=== PATIENT | female | born 1990 | race Caucasian/White ===

== ENCOUNTER 2021-12-18 23:21 | Outpatient (CLI) | payer BC, SELFPAY ==
[2021-12-18 23:44] VITALS: PULSE 98; O2SAT 99
[2021-12-18 23:46] VITALS: BP 136/90; PULSE 78; RESP 16; TEMP 36.9
[2021-12-19 00:03] VITALS: BP 132/88; PULSE 90
[2021-12-19 00:11] VITALS: BP 121/84; PULSE 87
--- NOTE | 2021-12-19 02:28 | PC.OBNST ---
NST Note NST Note Start: 12/18/21 23:33 Freq: ONCE Status: Active Protocol: Document 12/19/21 02:26 EGM (Rec: 12/19/21 02:28 EGM [id number]) NST Note 5 Para (# of births) 2 EDC 12/25/21 Patient Presented with Complaint(s) of Contractions/cramping Reactive Yes Appropriate for Gestational Age Yes GALEN Sanders RN Date 12/19/21 Reactive Yes Appropriate for Gestational Age Yes GALEN Valdez RN-C Date 12/19/21 OB NST charge Yes Provider Evaluation of EFM Strip: Reactive: [] Appropriate for Gestational Age: [] Comments:
--- OUTSIDE RECORDS SUMMARY | 2022-01-15 11:01 | XMS_ITS | Encounter Summary ---
:1990 Author Organization [facility] Address [address] [place] [id number] Care Team Providers Name Role Phone No Ref-Primary, Physician Primary Care Provider [phone] Sarah Weiner CLINICAL MANAGER HOME CARE TECHNICAL SOURCING RECRUITER Unavailable [phone] Encounter Details Date Type Department Care Team Description 01/19/2019 Travel Social History Tobacco Use Types Packs/Day Years Used Date Never Smoker Smokeless Tobacco: Never Used Alcohol Use Standard Drinks/Week Comments No 0 (1 standard drink = 0.6 oz pure alcoho l) Sex Assigned at Date Recorded Not on file documented as of this encounter Plan of Treatment Not on filedocumented as of this encounter Visit Diagnoses Not on filedocumented in this encounter Care Teams Recruitment Director Relationship Specialty Start Date End Date No Ref-Primary, Physician PCP - General 09/02/17 03/07/19 Sarah Weiner, YVES TECHNICAL SOURCING RECRUITER Assigned PCP 09/06/18 01/22/20 [id number] [place] [address] documented as of this encounter
--- OUTSIDE RECORDS SUMMARY | 2022-01-15 11:01 | XMS_ITS | Encounter Summary ---
:1990 Author Organization [facility] Address [address] [place] [address]. [place] [address] Care Team Providers Name Role Phone No Ref-Primary, Physician Primary Care Provider [phone] Jeff Mcgee PA-C Unavailable [phone] Reason for Referral Vision Services - Closed Specialty Diagnoses / Procedures Referred By Contact Refer red To Contact Diagnoses Vision changes Sarah Weiner M [facility] YVES [place] [address] [facility] [address] [place] [address] [place] [phone] Phone: Fax: Referral ID Status Reason Start Date Expiration Date Visits Requ ested Visits Authorized [id number] Closed 09/03/2018 09/03/2019 1 1 Reason for Visit Reason Comments Nutrition Counseling Eye Problem little difficult see at [facility] t when driving Encounter Details Date Type Department Care Team Description 09/03/[address] [facility] Sarah Weiner Class 1 obesity due to excess calories without serious comorbidity with body mass index (BMI) of 34.0 to 34.9 in adult (Primary Dx); Clinic Anu Olson APRN CNP Vision changes [place] [address] [facility], [address] [place] [address] [place], [place] [phone] (Wo rk) [id number] [phone] Social History Tobacco Use Types Packs/Day Years Used Date Never Smoker Smokeless Tobacco: Never Used Alcohol Use Standard Drinks/Week Comments No 0 (1 standard drink = 0.6 oz pure alcoho l) Sex Assigned at Date Recorded Not on file documented as of this encounter Last Filed Vital Signs Vital Sign Reading Time Taken Comments Blood Pressure 118/82 09/03/2018 9:50 AM CDT Pulse 88 09/03/2018 9:50 AM CDT Temperature 36.4 ??C (97.6 ??F) 09/03/2018 9:50 AM CDT Respiratory Rate 16 09/03/2018 9:50 AM CDT Oxygen Saturation 97% 09/03/2018 9:50 AM CDT Inhaled Oxygen Concentration - - Weight 93.4 kg (206 lb) 09/03/2018 9:50 AM CDT Height 165.7 cm (5' 5.25) 09/03/2018 9:50 AM CDT Body Mass Index 34.02 09/03/2018 9:50 AM CDT documented in this encounter Progress Notes Sarah Weiner, YVES DIRECTOR WOMEN - 09/03/2018 9:40 AM CDT SUBJECTIVE: Aleyda Palmer is a 27 year old female who presents to clinic today for the following health issues: Eye(s) Problem Onset: x 2 months ago ?? Description: Location: bilateral Pain: no Redness: no ?? Accompanying Signs & Symptoms: Discharge/mattering: no Swelling: no Visual changes: YES- At night when driving Fever: no Nasal Congestion: no Bothered by bright lights: YES ?? History: Trauma: no Foreign body exposure: no ?? Precipitating factors: Wearing contacts: no ?? Alleviating factors: Improved by: no Therapies Tried and outcome: no Would like to have an eye exam before she drives to [place] for a road trip in October. Driving at night bothers her eyes. Was told she needed a referral. Would like to talk about nutrition and a medication for diet. She works out 3-5 days a week. She plays basketball one day a week and is starting to do tennis. Shealso lifts weights and runs 1 mile when at the gym. She started to improve her diet around Bharath. She stopped drinking soda; used to drink 3 cans of coke a day. She is working on cutting out sugars. Her snacks have switched to a protien or something healthy; no crackers/goldfish. She has cut down on the frequency of eating out. Despite diet changes and exercise she is having a hard time loosing weight. She would like to try a medication, specifically phentermine. Wt Readings from Last 4 Encounters: 09/03/18 93.4 kg (206 lb) 09/22/17 91.6 kg (202 lb) 09/02/17 90.7 kg (200 lb) Problem list and histories reviewed & adjusted, as indicated. Additional history: as documented No current outpatient medications on file. No Known Allergies Reviewed and updated as needed this visit by clinical staff Tobacco Meds Med Hx Surg Hx Fam Hx Soc Hx Reviewed and updated as needed this visit by Provider ROS: Constitutional, HEENT, cardiovascular, pulmonary, gi and gu systems are negative, except as otherwise noted. OBJECTIVE: BP 118/82 (BP Location: Right arm, Patient Position: Sitting, Cuff Size: Adult Regular) Pulse 88 Temp 97.6 ??F (36.4 ??C) (Oral) Resp 16 Ht 1.657 m (5' 5.25) Wt 93.4 kg (206 lb) SpO2 97% BMI 34.02 kg/m?? Body mass index is 34.02 kg/m??. GENERAL: healthy, alert and no distress PSYCH: mentation appears normal, affect normal/bright Diagnostic Test Results: none ASSESSMENT/PLAN: 1. Class 1 obesity due to excess calories without serious comorbidity with body mass index (BMI) of 34.0 to 34.9 in adult Discussed weight loss; aim for 150 minutes of dedicated physical activity weekly. myfitnesspal to help track diet, intermittent fasting (fast for 12 hours daily-- 7pm-7am), increase water intake, increase fruits and vegetables. Will start phentermine; risks, benefits and side effects reviewed as well as short term nature of medication. - phentermine (ADIPEX-P) 37.5 MG capsule; Take 1 capsule (37.5 mg) by mouth every morning Dispense: 30 capsule; Refill: 0 2. Vision changes - OPTOMETRY REFERRAL F/u 1 mos Sarah Weiner APRN CNP [facility] documented in this encounter Plan of Treatment Scheduled Referrals Name Type Priority Associated Diagnoses Order S chedule OPTOMETRY REFERRAL Referral Routine Vision changes Ordered : 09/03/2018 documented as of this encounter Visit Diagnoses Diagnosis Class 1 obesity due to excess calories w ithout serious comorbidity with body mass index (BMI) of 34.0 to 34.9 in adult - P rimary Vision changes Unspecified visual disturbance documented in this encounter Care Teams Dean Of Women Relationship Specialty Start Date End Date No Ref-Primary, Physician PCP - General 09/02/17 03/07/19 Jeff Mcgee PA-C Assigned PCP 09/04/17 09/05/18 [id number] [facility] [place] [address] documented as of this encounter
--- OUTSIDE RECORDS SUMMARY | 2022-01-15 11:01 | XMS_ITS | Encounter Summary ---
:1990 Author Organization [place] Address [address] [facility] [place] [address] Care Team Providers Name Role Phone No Ref-Primary, Physician Primary Care Provider [phone] Sarah Weiner KAIAWHINA MEASURER MACHINE Unavailable [phone] Reason for Visit Reason Comments Recheck Medication Encounter Details Date Type Department Care Team Description 12/11/[address] [facility] Sarah Weiner Class 1 obesity due [facility] YVES Olson MEASURER MACHINE to excess calories [place] [address] [facility] [address] [place] [address] comorbidity with body [place], [place] [phone] (Wo rk) [place] ([place] [phone] 34.0 to 34.9 in adult [phone] Social History Tobacco Use Types Packs/Day Years Used Date Never Smoker Smokeless Tobacco: Never Used Alcohol Use Standard Drinks/Week Comments No 0 (1 standard drink = 0.6 oz pure alcoho l) Sex Assigned at Date Recorded Not on file documented as of this encounter Last Filed Vital Signs Vital Sign Reading Time Taken Comments Blood Pressure 115/80 12/11/2018 2:48 PM CDT Pulse 90 12/11/2018 3:07 PM CDT Temperature 36.6 ??C (97.8 ??F) 12/11/2018 2:48 PM CDT Respiratory Rate 16 12/11/2018 2:48 PM CDT Oxygen Saturation - - Inhaled Oxygen Concentration - - Weight 76.1 kg (167 lb 11.2 oz) 12/11/2018 2:48 PM CDT Height 165.7 cm (5' 5.25) 12/11/2018 2:48 PM CDT Body Mass Index 27.69 12/11/2018 2:48 PM CDT documented in this encounter Progress Notes Sarah Weiner, KAIAWHINA MEASURER MACHINE - 12/11/2018 2:40 PM CDT Subjective Aleyda Palmer is a 28 year old female who presents to clinic today for the following health issues: HPI Medication Followup of phentermine ?? Taking Medication as prescribed: yes ?? Side Effects: None ?? Medication Helping Symptoms: yes Wt Readings from Last 4 Encounters: 12/11/18 76.1 kg (167 lb 11.2 oz) 10/06/18 86.4 kg (190 lb 6.4 oz) 09/03/18 93.4 kg (206 lb) 09/22/17 91.6 kg (202 lb) Started on phentermine in the end of August 2018. She has continued on this the last 3 months and hasdone quite well. She has been working out 4-5 days a week. Over the last few months she has been able to stay focused and committed to healthy diet changes. She does find now that it is summer and she goes boating with friends she has been drinking more alcohol. Current Outpatient Medications Medication Sig Dispense Refill ??? phentermine (ADIPEX-P) 37.5 MG capsule Take 1 capsule (37.5 mg) by mouth every morning 30 capsule 2 No Known Allergies Reviewed and updated as needed this visit by Provider Review of Systems ROS COMP: Constitutional, HEENT, cardiovascular, pulmonary, gi and gu systems are negative, except as otherwise noted. Objective BP 115/80 (BP Location: Right arm, Patient Position: Sitting, Cuff Size: Adult Regular) Pulse 90 Temp 97.8 ??F (36.6 ??C) (Oral) Resp 16 Ht 1.657 m (5' 5.25) Wt 76.1 kg (167 lb 11.2 oz) BMI 27.69 kg/m?? Body mass index is 27.69 kg/m??. Physical Exam GENERAL: healthy, alert and no distress RESP: lungs clear to auscultation - no rales, rhonchi or wheezes CV: regular rate and rhythm, normal S1 S2, no S3 or S4, no murmur, click or rub PSYCH: mentation appears normal, affect normal/bright Diagnostic Test Results: none Assessment & Plan 1. Class 1 obesity due to excess calories without serious comorbidity with body mass index (BMI) of 34.0 to 34.9 in adult She has done very well with phentermine. She would like to continue; will have her take for 3 additional months and then stop. Congratulated her on lifestyle changes. - phentermine (ADIPEX-P) 37.5 MG capsule; Take 1 capsule (37.5 mg) by mouth every morning Dispense: 30 capsule; Refill: 2 Return in about 3 months (around 03/13/2019) for weight loss , Physical Exam. Sarah Weiner APRN CNP [facility] documented in this encounter Plan of Treatment Not on filedocumented as of this encounter Visit Diagnoses Diagnosis Class 1 obesity due to excess calories w ithout serious comorbidity with body mass index (BMI) of 34.0 to 34.9 in adult documented in this encounter Care Teams Comptroller Relationship Specialty Start Date End Date No Ref-Primary, Physician PCP - General 09/02/17 03/07/19 Sarah Weiner APRN CNP Assigned PCP 09/06/18 01/22/20 [address] [address] [address] documented as of this encounter
--- OUTSIDE RECORDS SUMMARY | 2022-01-15 11:01 | XMS_ITS | Encounter Summary ---
:1990 Author Organization [place] Address [facility] [place] [address] Care Team Providers Name Role Phone No Ref-Primary, Physician Primary Care Provider [phone] Reason for Visit Reason Comments Abdominal Pain Encounter Details Date Type Department Care Team Description [facility]/02[facility] Emergency Dep t epigastric [address] [facility] [id number] [address] [facility] [phone] [place], [place] [address] (Wo rk) Social History Tobacco Use Types Packs/Day Years Used Date Never Smoker Smokeless Tobacco: Never Used Alcohol Use Standard Drinks/Week Comments No 0 (1 standard drink = 0.6 oz pure alcoho l) Sex Assigned at Date Recorded Not on file documented as of this encounter Last Filed Vital Signs Vital Sign Reading Time Taken Comments Blood Pressure 127/93 09/02/2017 8:00 AM CDT Pulse 73 09/02/2017 6:04 AM CDT Temperature 36.6 ??C (97.8 ??F) 09/02/2017 6:04 AM CDT Respiratory Rate 16 09/02/2017 8:31 AM CDT Oxygen Saturation 98% 09/02/2017 8:00 AM CDT Inhaled Oxygen Concentration - - Weight 90.7 kg (200 lb) 09/02/2017 6:04 AM CDT Height - - Body Mass Index - - documented in this encounter Discharge Instructions Discharge Vandana Buchanan MD - 09/02/2017 6:54 AM CDT Images from the original note were not included. Epigastric Pain (Uncertain Cause) ?? Epigastric pain can be a sign of disease in the upper abdomen. Common causes include: ?? Acid reflux (stomach acid flowing up into the esophagus) ?? Gastritis (irritation of the stomach lining) ?? Peptic Ulcer Disease ?? Inflammation of the pancreas ?? Gallstone ?? Infection in the gallbladder Pain may be dull or burning. It may spread upward to the chest or to the back. There may be other symptoms such as belching, bloating, cramps or hunger pains. There may be weight loss or poor appetite,nausea or vomiting. Since the diagnosis of your pain is not certain yet, further tests may sometimes??be needed. Sometimes the doctor will treat you for the most likely condition to see if there is improvement before doing further tests. Home care Medicines ?? Antacids help neutralize the normal acids in your stomach. Examples are Maalox, Mylanta, Rolaids,and Tums. If you don???t like the liquid, you can also try a chewable one. You may find one works better than another for you. Overuse can cause diarrhea or constipation. ?? Acid blockers (H2 blockers) decrease acid production. Examples are cimetidine (Tagamet), famotidine (Pepcid) and ranitidine (Zantac). ?? Acid inhibitors (PPIs) decrease acid production in a different way than the blockers. You may find they work better, but can take a little longer to take effect.?? Examples are omeprazole (Prilosec), lansoprazole (Prevacid), pantoprazole (Protonix), rabeprazole (Aciphex), and esomeprazole (Nexium). ?? Take an antacid 30-60??minutes after eating and at bedtime, but not at the same time as an acid sami. ?? Try not to take NSAIDs. Aspirin may also cause problems, but if taking it for your heart or othermedical reasons, talk to your doctor before stopping it; you do not want to cause a worse problem, like a heart attack or stroke. Diet ?? If certain foods seem to cause your spasm, try to avoid them.? Eat slowly and chew food well before swallowing. Symptoms of gastritis can be worsened by certainfoods. Limit or avoid fatty, fried, and spicy foods, as well as coffee, chocolate, mint, and foods with high acid content such as tomatoes and citrus fruit and juices (orange, grapefruit, lemon). ?? Avoid alcohol, caffeine, and tobacco, which can delay healing??and worsen your problem. ?? Try eating smaller meals with snacks in between Follow-up care Follow up with your healthcare provider or as advised. When to seek medical advice Call your healthcare provider right away if any of the following occur: ?? Stomach pain worsens or moves to the right lower part of the abdomen ?? Chest pain appears, or if it worsens or spreads to the chest, back, neck, shoulder, or arm ?? Frequent vomiting (can???t keep down liquids) ?? Blood in the stool or vomit (red or black color) ?? Feeling weak or dizzy, fainting, or having trouble breathing ?? Fever of 100.4??F (38??C) or higher, or as directed by your healthcare provider ?? Abdominal swelling Date Last Reviewed: 03/03/2015 ?? [id number] [employer]. [address] [place] [address]. All rights reserved. This information is not intended as a substitute for professional medical care. Always follow your healthcare professional's instructions. documented in this encounter Medications at Time of Discharge Medication Sig Dispensed Refills Start Date End Date TRINESSA, 28, 0.18/0.215/0.25 MG-35 MCG 0 10/01/2016 09/03/2018 per tablet documented as of this encounter ED Notes Shazia Pedroza - 09/02/2017 8:32 AM CDT Removed Pt. IV placed in Lt. Arm. Pt. Tolerated well Shazia Pedroza - 09/02/2017 8:19 AM CDT Water and gram crackers given to Pt. Corazon Vasquez RN - 09/02/2017 6:06 AM CDT 26-year-old female presents to the ER with complaints of nausea, craving for fruit, and abd cramping. Pt thought she may be so she took a test at home yesterday that was negative. Ptlast had her menstrual cycle 2 weeks ago. Vandana Paiz MD - 09/02/2017 6:01 AM CDT History Chief Complaint: Abdominal Pain HPI Aleyda Palmer is a 26 year old female who presents with abdominal pain. She states that she started having nausea and 1 episode of vomiting 4 days ago. She then started having severe lower abdominal cramping that radiates her hips, which started the next day. Her appetite has decreased and she feelslike the only thing that feels okay to eat is fruit. She is now having upper abdominal pain around her epigastrium that is moderate in intensity. She is unsure if food makes the pain worse. She denies fevers, dysuria, increased urinary frequency, shortness and chest pain. Endorses a couple loose stools, but now is stooling normal. She denies any history of abdominal surgeries. She took a urine pregnan cy test yesterday, which was negative. She denies vaginal discharge. Allergies: NKDA Medications: No current outpatient prescriptions on file. Past Medical History: History reviewed. No pertinent past medical history. There are no active problems to display for this patient. Past Surgical History: History reviewed. No pertinent surgical history. Family History: family history is not on file. Social History: reports that she has never smoked. She has never used smokeless tobacco. She reports that she does not drink alcohol or use illicit drugs. PCP: No primary care provider on file. Review of Systems Constitutional: Negative for chills and fever. Respiratory: Negative for cough and shortness of breath. Gastrointestinal: Positive for abdominal pain, diarrhea and nausea. Negative for abdominal distention and constipation. Endocrine: Positive for polyuria. Genitourinary: Negative for dysuria. Neurological: Positive for light-headedness. Negative for weakness. All other systems reviewed and are negative. Physical Exam Patient Vitals for the past 24 hrs: BP Temp Temp src Pulse Resp SpO2 Weight 09/02/17 0702 115/74 - - - - 100 % - 09/02/17 0700 - - - - - 99 % - 09/02/17 0604 (!) 151/106 97.8 ??F (36.6 ??C) Temporal 73 18 96 % 90.7 kg (200 lb) Physical Exam Constitutional: Alert, attentive, GCS 15, well appearing young woman in no acute distress, appears comfortable HENT: Nose: Nose normal. Mouth/Throat: Oropharynx is clear, mucous membranes are moist Eyes: Normal conjunctiva. Pupils are equal, round, and reactive to light. CV: regular rate and rhythm; no murmurs, rubs or gallups Chest: Effort normal and breath sounds normal. GI: There is tenderness to deep palpation in RUQ and epigastrium, no rebound or guarding. Negative [place] sign. No distension. Normal bowel sounds MSK: Normal range of motion, no peripheral edema. Neurological: Alert, attentive, oriented x4, strength grossly normal Skin: Skin is warm and dry. Emergency Department Course Imaging: US Abdomen Limited Preliminary Result IMPRESSION: 1. Fatty infiltration of the liver. 2. Gallbladder has a normal appearance by ultrasound. No gallstones. Negative sonographic Gallegos's sign. 3. Small size of the right kidney. This could be developmental in nature, versus prior renal insult. Laboratory: Labs Ordered and Resulted from Time of ED Arrival Up to the Time of Departure from the ED ROUTINE UA WITH MICROSCOPIC - Abnormal; Notable for the following: Result Value Mucous Urine Present (*) All other components within normal limits COMPREHENSIVE METABOLIC PANEL - Abnormal; Notable for the following: ALT 65 (*) All other components within normal limits HCG QUALITATIVE URINE LIPASE CBC WITH PLATELETS DIFFERENTIAL Interventions: Medications lidocaine (viscous) (XYLOCAINE) 2 % 15 mL, alum & mag hydroxide-simethicone (MYLANTA ES/MAALOX ES) 15 mL GI Cocktail (30 mLs Oral Given 09/02/17 0711) ketorolac (TORADOL) injection 15 mg (15 mg Intravenous Given 09/02/17 0814) Emergency Department Course: Past medical records, nursing notes, and vitals reviewed. I performed an exam of the patient and obtained history, as documented above. I rechecked the patient. No improvement after GI cocktail. Toradol given. 0820 I rechecked the patient. Findings and plan explained to the Patient. All questions answered. Impression & Plan Medical Decision Makin26 year old female presents with intermittent abdominal pain and cramping. On exam, pain is located in her RUQ and epigastrium. Differential diagnosis includes gastritis, GERD, cholecystitis, cholelithiasis, pancreatitis, acute coronary syndrome, pneumonia. Urine is negative and UA does not show infection or hematuria. Labs reassuring. US shows fatty liver infiltration but no gallstones or secondary signs of cholecystitis. Symptoms improved with the above indications in the emergency department. Repeat abdominal exam is benign. Her symptoms appear more consistent with cramping after viralgastroenteritis, and less consistent with gastritis or PUD as there is no worsening with food intakeand there is intermittent lower abdominal cramping as well. It is not localizing to RLQ and doubt appendicitis given duration of symptoms without fevers or leukocytosis. She will try trial of ibuprofenif pain returns. Patient instructed to follow up with primary care physician in 2-3 days if not improving and return precautions discussed with patient. Return precautions discussed. Diagnosis: ICD-10-CM 1. Abdominal pain, epigastric R10.13 Lipase Comprehensive metabolic panel CBC with platelets differential Discharge Medications: New Prescriptions No medications on file 09/02/2017 Vandana Paiz MD Lum, Marija Margaret, MD 09/02/17 1520 documented in this encounter Plan of Treatment Not on filedocumented as of this encounter Procedures Procedure Name Priority Date/Time Associated Comments Diagnosis US ABDOMEN LIMITED STAT 09/02/2017 7:00 AM Res ults for this CDT procedure are i n the results section. CBC WITH PLATELETS & Routine 09/02/2017 6:30 AM Abdominal pain , Results for this DIFFERENTIAL CDT epigastric procedure are i n the results section. LIPASE STAT 09/02/2017 6:30 AM Abdominal pain, Result s for this CDT epigastric procedure are i n the results section. COMPREHENSIVE Routine 09/02/2017 6:30 AM Abdominal pain, Resul ts for this METABOLIC PANEL CDT epigastric procedure ar e in the results section. HCG QUALITATIVE URINE STAT 09/02/2017 6:16 AM Results for this CDT procedure are i n the results section. ROUTINE UA WITH STAT 09/02/2017 6:16 AM Result s for this MICROSCOPIC CDT procedure are i n the results section. documented in this encounter Results US Abdomen Limited (09/02/2017 7:00 AM CDT) Anatomical Region Laterality Modality Abdomen/Pelvis Ultrasound Specimen (Source) Anatomical Location Collection Method / Collectio n Time Received Time / Laterality Volume Impressions 09/02/2017 3:54 PM CDT IMPRESSION: ?? 1. Fatty infiltration of the liver. 2. Gallbladder has a normal appearance b y ultrasound. No gallstones. Negative sonographic Gallegos's sign. 3. Small size of the right kidney. This could be developmental in nature, versus prior renal insult. VIRGINIA GARCIA MD Narrative 09/02/2017 3:54 PM CDT ULTRASOUND ABDOMEN LIMITED September 02, 2017 7:00 AM HISTORY: Right upper quadrant pain. COMPARISON: None. FINDINGS: ?? Gallbladder: Normal with no cholelithias is, wall thickening or focal tenderness. ?? Bile ducts: CHD is normal diameter. No i ntrahepatic biliary dilatation. Liver: Fatty liver. Pancreas: Partially obscured but grossly unremarkable. Right kidney: Length is 7.3 cm. Cortical thickness is 0.9 cm. No hydronephrosis. Aorta and IVC: Not specifically assessed . ?? Procedure Note Virginia Garcia MD - 09/02/2017Forma tting of this note might be different from the original. ULTRASOUND ABDOMEN LIMITED September 02 7:00 AM HISTORY: Right upper quadrant pain. COMPARISON: None. FINDINGS: Gallbladder: Normal with no cholelithias is, wall thickening or focal tenderness. Bile ducts: CHD is normal diameter. No i ntrahepatic biliary dilatation. Liver: Fatty liver. Pancreas: Partially obscured but grossly unremarkable. Right kidney: Length is 7.3 cm. Cortical thickness is 0.9 cm. No hydronephrosis. Aorta and IVC: Not specifically assessed . IMPRESSION: 1. Fatty infiltration of the liver. 2. Gallbladder has a normal appearance b y ultrasound. No gallstones. Negative sonographic Gallegos's sign. 3. Small size of the right kidney. This could be developmental in nature, versus prior renal insult. VIRGINIA GARCIA MD Vandana Paiz MD IMG US ORDERABLES CBC with platelets differential (09/02/2017 6:30 AM [facility]) [facility] gist Method Time Signature WBC 8.4 4.0 - 09/02/2017 [facility] 11.0 6:56 AM [facility] 10e9/L [facility] RBC Count 4.83 3.8 - 5.2 09/02/2017 [facility] 10e12/L 6:56 AM [facility] Hemoglobin 13.4 11.7 - 09/02/2017 [facility] 15.7 g/dL 6:56 AM [facility] Hematocrit 40.6 35.0 - 09/02/2017 [facility] 47.0 % 6:56 AM [facility] MCV 84 78 - 100 09/02/2017 [facility] fl 6:56 AM [facility] MCH 27.7 26.5 - 09/02/2017 [facility] 33.0 pg 6:56 AM [facility] MCHC 33.0 31.5 - 09/02/2017 [facility] 36.5 g/dL 6:56 AM [facility] RDW 12.5 10.0 - 09/02/2017 [facility] 15.0 % 6:56 AM [facility] Platelet Count 234 150 - 450 09/02/2017 [facility] 10e9/L 6:56 AM [facility] Diff Method Automated 09/02/2017 [facility] Method 6:56 AM [facility] % Neutrophils 63.5 % 09/02/2017 [facility] 6:56 AM [facility] % Lymphocytes 24.8 % 09/02/2017 [facility] 6:56 AM [facility] % Monocytes 7.5 % 09/02/2017 [facility] 6:56 AM [facility] % Eosinophils 3.6 % 09/02/2017 [facility] 6:56 AM [facility] % Basophils 0.2 % 09/02/2017 [facility] 6:56 AM [facility] % Immature 0.4 % 09/02/2017 [facility] Granulocytes 6:56 AM [facility] Nucleated RBCs 0 0 /100 09/02/2017 [facility] 6:56 AM [facility] Absolute 5.3 1.6 - 8.3 09/02/2017 [facility] Neutrophil 10e9/L 6:56 AM [facility] Absolute 2.1 0.8 - 5.3 09/02/2017 [place] Lymphocytes 10e9/L 6:56 AM [facility] Absolute 0.6 0.0 - 1.3 09/02/2017 [facility] Monocytes 10e9/L 6:56 AM [facility] Absolute 0.3 0.0 - 0.7 09/02/2017 [facility] Eosinophils 10e9/L 6:56 AM [facility] Absolute 0.0 0.0 - 0.2 09/02/2017 [place] Basophils 10e9/L 6:56 AM [facility] Abs Immature 0.0 0 - 0.4 09/02/2017 [place] Granulocytes 10e9/L 6:56 AM [facility] Absolute 0.0 09/02/2017 [place] Nucleated RBC 6:56 AM [facility] Specimen Anatomical Collection Method Collection Time Receive d Time (Source) Location / / Volume Laterality 09/02/2017 6:30 AM 8 6:39 CDT AM CDT Vandana Paiz MD LAB - BLOOD ORDERABLES Performing Organization Address City/State/ZIP Code Phon e Number [facility] [address] [address] [facility] [address] [phone] (ABNORMAL) Comprehensive metabolic panel (09/02/2017 6:30 AM CDT) P athologist Signature Sodium 139 133 - 144 09/02/2017 [place] mmol/L 7:12 AM [facility] Potassium 3.6 3.4 - 5.3 09/02/2017 [place] mmol/L 7:12 AM [facility] Chloride 106 94 - 109 09/02/2017 [place] mmol/L 7:12 AM [facility] Carbon Dioxide 28 20 - 32 09/02/2017 [place] mmol/L 7:12 AM [facility] Anion Gap 5 3 - 14 09/02/2017 [place] mmol/L 7:12 AM [facility] Glucose 99 70 - 99 09/02/2017 [place] mg/dL 7:12 AM [facility] Urea Nitrogen 12 7 - 30 09/02/2017 [place] mg/dL 7:12 AM [facility] Creatinine 0.80 0.52 - 09/02/2017 [facility] 1.04 mg/dL 7:12 AM [facility] GFR Estimate 86 >60 09/02/2017 [place] mL/min/1.7 7:[address] Comment: Non GFR Calc GFR Estimate If >90 >60 mL/min/1.7m2 09/02/2017 7:12 A M [facility] Black [facility] Comment: GFR Calc Calcium 8.5 8.5 - 10.1 09/02/2017 7:12 AM [facility] mg/dL [facility] Bilirubin Total 0.4 0.2 - 1.3 mg/dL 09/02/2017 7:12 AM [facility] Albumin 3.8 3.4 - 5.0 g/dL 09/02/2017 7:[address] [facility] Protein Total 7.7 6.8 - 8.8 g/dL 09/02/2017 7:12 AM [facility] Alkaline Phosphatase 65 40 - 150 U/L 09/02/2017 7:12 AM [facility] ALT 65 (H) 0 - 50 U/L 09/02/2017 7:12 AM [facility] AST 30 0 - 45 U/L 09/02/2017 7:12 AM [facility] Specimen Anatomical Collection Method Collection Time Receive d Time (Source) Location / / Volume Laterality 09/02/2017 6:30 AM 8 6:39 CDT AM CDT Vandana Paiz MD LAB - BLOOD ORDERABLES Performing Organization Address City/State/ZIP Code Phon e Number [facility] [address] [place], [place] [address] [phone] [facility] [address] [phone] Lipase (09/02/2017 6:30 AM CDT) athologist Signature Lipase 133 73 - 393 09/02/2017 [facility] U/L 6:54 AM CDT HOSPITAL Specimen Anatomical Collection Method Collection Time Receive d Time (Source) Location / / Volume Laterality Blood specimen 09/02/2017 6:30 AM 018 6:39 (specimen) CDT AM CDT Vandana Paiz MD LAB - BLOOD ORDERABLES Performing Organization Address City/[facility]/ZIP Code Phon e Number [facility] [address] [place], [place] [address] [facility] [address] [place], [place] [address] [phone] HCG qualitative urine (UPT) (09/02/2017 6:16 AM CDT) athologist Signature HCG Qual Urine Negative NEG^Negati 09/02/2017 [facility] 6:51 AM [facility] Comment: This test is for screening purposes. ??R esults should be interpreted along with the clinical picture. ??Confirmation te sting is available if warranted by ordering [id number], HCG Quantitative Pregna ncy. Specimen Anatomical Collection Method Collection Time Receive d Time (Source) Location / / Volume Laterality Urine specimen URINE SPECIMEN 09/02/2017 6:16 AM 09/02 6:37 (specimen) OBTAINED BY CLEAN CDT AM CDT CATCH PROCEDURE / Unknown Vandana Paiz MD LAB - URINE ORDERABLES Performing Organization Address City/[facility]/ZIP Code Phon e Number [facility] [address] [place], [place] [address] [facility] [address] [place], [place] [address] [phone] (ABNORMAL) UA with Microscopic (09/02/2017 6:16 AM CDT) Component Value Ref Test Analysis Performed At Patholo gist Range Method Time Signature Color Urine Yellow 09/02/2017 [place] 6:50 AM [facility] Appearance Urine Clear 09/02/2017 [place] 6:50 AM [facility] Glucose Urine Negative NEG^Nega 09/02/2017 [place] tive 6:50 AM [facility] mg/dL [facility] Bilirubin Urine Negative NEG^Nega 09/02/2017 [place] tive 6:50 AM [facility] Ketones Urine Negative NEG^Nega 09/02/2017 [facility] tive 6:50 AM [facility] mg/dL HOSPITAL Specific Casar 1.024 1.003 - 09/02/2017 [place] Urine 1.035 6:50 AM [facility] Blood Urine Negative NEG^Nega 09/02/2017 [facility] tive 6:50 AM [facility] pH Urine 5.0 5.0 - 09/02/2017 [facility] 7.0 pH 6:50 AM [facility] Protein Albumin Negative NEG^Nega 09/02/2017 [place] Urine tive 6:50 AM [facility] mg/dL [facility] Urobilinogen 0.0 0.0 - 09/02/2017 [place] mg/dL 2.0 6:50 AM [facility] mg/dL [facility] Nitrite Urine Negative NEG^Nega 09/02/2017 [facility] tive 6:50 AM [facility] Leukocyte Negative NEG^Nega 09/02/2017 [place] Esterase Urine tive 6:50 AM [facility] Source Unspecified 09/02/2017 [place] Urine 6:38 AM [facility] WBC Urine 1 0 - 5 09/02/2017 [facility] /HPF 6:50 AM [facility] RBC Urine <1 0 - 2 09/02/2017 [facility] /HPF 6:50 AM [facility] Squamous <1 0 - 1 09/02/2017 [place] Epithelial /HPF /HPF 6:50 AM [facility] Mucous Urine Present (A) NEG^Nega 09/02/2017 [place] tive 6:50 AM [facility] Specimen (Source) Anatomical Collection Method Collection Time Re ceived Time Location / / Volume Laterality Unspecified Urine URINE SPECIMEN 09/02/2017 6:16 09/02 6:37 OB[facility]ED BY CLEAN [facility] / Unknown Vandana Paiz MD LAB - URINE ORDERABLES Performing Organization Address City/State/ZIP Code Phon e Number [facility] [address] [address] [facility] [address] [phone] documented in this encounter Visit Diagnoses Diagnosis Abdominal pain, epigastric documented in this encounter Administered Medications Inactive Administered Medications - up to 3 most recent administrations Medication Order MAR Action Action Date Dose Rate Site ketorolac (TORADOL) injection 15 mg Given 09/02/2017 8:14 AM CDT 15 mg 15 mg, Intravenous, ONCE, Administer over 2 Minutes, On 09/02/17 at 0723, For 1 dose, Can cause pain on injection. Administer through a running maintenance fluid over 1 minute followed by a flush. If patient complains of pain on injection, may dilute 15-30 mg in 5 mL and push over 1 to 2 minutes. lidocaine (viscous) (XYLOCAINE) 2 % 15 mL, Given 09/02/2017 7:11 AM CDT 30 mLs alum & mag hydroxide-simethicone (MYLANTA ES/MAALOX ES) 15 mL GI Cocktail 30 mL, Oral, ONCE, On 09/02/17 at 0648, For 1 dose documented in this encounter Active and Recently Administered Medications Times are shown in CDT. Scheduled Medication Order 08/31/2017 09/01/2017 09/02/2017 ketorolac (TORADOL) injection 15 mg (COMPLETED) 08 (Given - Provider: Shante Griffiths, GALEN) 15 mg, Intravenous, ONCE, Administer ove r 2 Minutes, On e 09/02/17 at 0723, For 1 dose, Can cause pain on injection. Administer through a running maintenance fluid over 1 minute followed by a flush. If patient complains of pain on injection, may dilute 15-30 mg in 5 mL and push over 1 to 2 minutes. lidocaine (viscous) (XYLOCAINE) 2 % 15 m L, alum & mag hydroxide-simethicone (MYLANTA ES/MAALOX ES) 15 mL GI Cocktail (COMPLETED) 07 (Given - Provider: Shante Griffiths, GALEN) 30 mL, Oral, ONCE, e 09/02/17 at 0648, For 1 dose documented in this encounter Care Teams Clay Puddler Relationship Specialty Start Date End Date No Ref-Primary, Physician PCP - General 09/02/17 03/07/19 documented as of this encounter
--- OUTSIDE RECORDS SUMMARY | 2022-01-15 11:01 | XMS_ITS | Encounter Summary ---
:1990 Author Organization [place] Address [address] [facility] [place] [address] Care Team Providers Name Role Phone No Ref-Primary, Physician Primary Care Provider [phone] Sarah Weiner APRN CASH PROCESSING SPECIALIST Unavailable [phone] Reason for Visit Reason Onset Date Comments Refill Request 11/06/2018 phentermine (ADIPEX- P) 37.5 MG capsule Encounter Details Date Type Department Care Team Description 11/06/2018 Telephone [facility] Sarah Weiner Refill Request Clinic Ida WhitneyYVES CASH PROCESSING SPECIALIST (phentermine [facility], [address] [place] [address] (ADIPEX-P) 37.5 MG [address] [place] [address] capsule) [place], [place] [phone] (Wo rk) [address] [phone] Social History Tobacco Use Types Packs/Day Years Used Date Never Smoker Smokeless Tobacco: Never Used Alcohol Use Standard Drinks/Week Comments No 0 (1 standard drink = 0.6 oz pure alcoho l) Sex Assigned at Date Recorded Not on file documented as of this encounter Miscellaneous Notes Telephone Encounter - Terrie Sierra - 11/06/2018 11:00 AM CDT Pt informed. Telephone Encounter - Momo Hernandez MD - 11/06/2018 10:39 AM CDT Rx sent electronically. Momo Hernandez MD Telephone Encounter - Jazmine Garcia - 11/06/2018 9:54 AM CDT Patient out, can we have another provider there fill for her today. [place] is out today. Last Written Prescription Date: 10/06/18 10/06/18Last Fill Quantity:30 , # refills: 0 Last office visit: 10/06/2018 with prescribing provider: Sarah Weiner Future Office Visit: Next 5 appointments (look out 90 days) Dec 04, 2018 9:00 AM CDT SHORT with Sarah Weiner APRN CNP [facility] ([facility]) [address] [place] [address], [facility] [address] [facility] [address] Requested Prescriptions Pending Prescriptions Disp Refills ??? phentermine (ADIPEX-P) 37.5 MG capsule 30 capsule 0 Sig: Take 1 capsule (37.5 mg) by mouth every morning There is no refill protocol information for this order documented in this encounter Plan of Treatment Not on filedocumented as of this encounter Visit Diagnoses Diagnosis Class 1 obesity due to excess calories w ithout serious comorbidity with body mass index (BMI) of 34.0 to 34.9 in adult documented in this encounter Care Teams Runner Out Relationship Specialty Start Date End Date No Ref-Primary, Physician PCP - General 09/02/17 03/07/19 Sarah Weiner APRN CNP Assigned PCP 09/06/18 01/22/20 [address] [place] [address] documented as of this encounter
--- OUTSIDE RECORDS SUMMARY | 2022-01-15 11:01 | XMS_ITS | Encounter Summary ---
:1990 Author Organization [place] Address [address] [facility] [place] [address] Care Team Providers Name Role Phone Sarah Weiner APRN, CNP Unavailable [phone] [facility] Primary Care Provider [phone] Reason for Referral Consultation (Routine) - Closed Specialty Diagnoses / Procedures Referred By Contact Refer red To Contact Diagnoses Sarah Roach M [facility] YVES LAGOS LOYD [address] [address] [place] [address] [address] [place], [place] [address] Phone: Fax: Referral ID Status Reason Start Date Expiration Date Visits Requ ested Visits Authorized [id number] Closed 03/17/2019 03/16/2020 1 1 Reason for Visit Reason Comments ER F/U 03/08/19 Encounter Details Date Type Department Care Team Description 03/17/2019 Office Visit [facility] Sarah Weiner (P rimary Dx); Clinic [place] YVES Olson CNP Need for prophylactic vaccination and in oculation against influenza; [place] [address] Class 1 obesity due to excess calories w ithout serious comorbidity with body mass index (BMI) of 34.[address] [place] [phone] Social History Tobacco Use Types Packs/Day Years Used Date Never Smoker Smokeless Tobacco: Never Used Alcohol Use Standard Drinks/Week Comments No 0 (1 standard drink = 0.6 oz pure alcoho l) Sex Assigned at Date Recorded Not on file documented as of this encounter Last Filed Vital Signs Vital Sign Reading Time Taken Comments Blood Pressure 120/78 03/17/2019 11:50 AM CDT Pulse 106 03/17/2019 11:50 AM CDT Temperature 36.8 ??C (98.2 ??F) 03/17/2019 11:50 AM CDT Respiratory Rate 16 03/17/2019 11:50 AM CDT Oxygen Saturation - - Inhaled Oxygen Concentration - - Weight 73.9 kg (163 lb) 03/17/2019 11:50 AM CDT Height 165.7 cm (5' 5.25) 03/17/2019 11:50 AM CDT Body Mass Index 26.92 03/17/2019 11:50 AM CDT documented in this encounter Progress Notes Sarah Weiner, YVES COLLECTION ADMINISTRATOR - 03/17/2019 11:40 AM CDT Subjective Aleyda Palmer is a 28 year old female who presents to clinic today for the following health issues: [facility] ED/UC Followup: Facility: [facility] Date of visit: 03/08/19 Reason for visit: Rash Current Status: Still has rash She was seen in the ED for rash on her legs that was spreading to her arms. Rash thought to be allergic with an area on the R her that was possibly early cellulitis. She was sent home with a steroid cream, course of prednisone and keflex. After 2 days of prednisone she thought the rash was improving.Then it seemed to stop getting better and now has new spots still popping up. The rash is itchy. Sheworks at [employer] and does use chemicals at work, but typically wears gloves when she uses the chemicals. At home no new products or soaps. A few days before rash started she was swimming in a [place]. Does recall moving some landen pads and weeds out of the way. Current Outpatient Medications Medication Sig Dispense Refill ??? levonorgestrel-ethinyl estradiol (SEASONALE) 0.15-0.03 MG tablet Take 1 tablet by mouth daily 84tablet 1 ??? phentermine (ADIPEX-P) 37.5 MG capsule Take 1 capsule (37.5 mg) by mouth every morning 30 capsule 2 ??? predniSONE (DELTASONE) 20 MG tablet Take 2 tabs by mouth daily x 3 days, then 1 tabs daily x 3 days, then 1/2 tab daily x 3 days. 11 tablet 0 ??? triamcinolone (KENALOG) 0.1 % external cream 80 grams 453.6 g 0 No Known Allergies Reviewed and updated as needed this visit by Provider Review of Systems ROS COMP: Constitutional, HEENT, cardiovascular, pulmonary, gi and gu and skin systems are negative,except as otherwise noted. Objective BP 120/78 (BP Location: Right arm, Patient Position: Sitting, Cuff Size: Adult Large) Pulse 106 Temp 98.2 ??F (36.8 ??C) (Oral) Resp 16 Ht 1.657 m (5' 5.25) Wt 73.9 kg (163 lb) BMI 26.92 kg/m?? Body mass index is 26.92 kg/m??. Physical Exam GENERAL: healthy, alert and no distress SKIN: pink circular patch with fine scale on the R dorsal foot, erythematous maculopapular rash on bilat feet and lower legs, some areas are excoriated. No blisters or open areas. Concentrated around the ankles bilat and worse on the R side. Clustering of much smaller, tiny erythematous macules/papules on bilat shoulders and the center of the upper chest. Diagnostic Test Results: Labs reviewed in Epic Assessment & Plan 1. Class 1 obesity due to excess calories without serious comorbidity with body mass index (BMI) of 34.0 to 34.9 in adult Took phentermine for four months with good results. BMI just outside of normal range. Has worked hard to establish good dietary changes as well exercise routine. Will stop phentermine at this time and continue with lifestyle changes. Wt Readings from Last 4 Encounters: 03/17/19 73.9 kg (163 lb) 01/20/19 71.2 kg (157 lb) 12/11/18 76.1 kg (167 lb 11.2 oz) 10/06/18 86.4 kg (190 lb 6.4 oz) 2. Rash Suspect this is contact derm. Initially had a brief improvement with prednisone. Will start her on ataper. F/u with derm for further eval. - DERMATOLOGY REFERRAL - predniSONE (DELTASONE) 20 MG tablet; Take 2 tabs by mouth daily x 3 days, then 1 tabs daily x 3 days, then 1/2 tab daily x 3 days. Dispense: 11 tablet; Refill: 0 No follow-ups on file. Sarah Weiner APRN CNP [facility] documented in this encounter Plan of Treatment Scheduled Referrals Name Type Priority Associated Diagnoses [facility] Referral Routine Rash Ordered : 03/17/2019 documented as of this encounter Visit Diagnoses Diagnosis Rash - Primary Rash and other nonspecific skin eruption Need for prophylactic vaccination and in oculation against influenza Class 1 obesity due to excess calories w ithout serious comorbidity with body mass index (BMI) of 34.0 to 34.9 in adult documented in this encounter Care Teams Piping Drafter Relationship Specialty Start Date End Date [facility] PCP - General 03/08/19 [address] [place] [address] Sarah Weiner APRN CNP Assigned PCP 09/06/18 01/22/20 [address] [place] [address] documented as of this encounter
--- OUTSIDE RECORDS SUMMARY | 2022-01-15 11:01 | XMS_ITS | Clinical Summary ---
:1990 Author Organization [place] Address [address] [place] [address] Care Team Providers Name Role Phone Clinic, [facility] Primary Care Provider [phone] Sarah Weiner STEAM CONDITIONING OPERATOR WIPING RAG WASHER Unavailable [phone] Allergies No known active allergies Medications Medication Sig Dispensed Refills Start Date End Date Status phentermine (ADIPEX-P) Take 1 capsule 30 capsule 2 12/11/2018 Active 37.5 MG (37.5 mg) by capsuleIndications: mouth every Class 1 obesity due to morning excess calories without serious comorbidity with body mass index (BMI) of 34.0 to 34.9 in adult Additional Information Patient not taking. Reported on 06/30/2019 levonorgestrel-ethinyl estradiol Take 1 tablet by 91 tablet 0 10/01/2019 Active (SEASONALE) 0.15-0.03 MG mouth daily tabletIndications: Encounter for initial prescription of contraceptive pills Active Problems Problem Noted Date Class 1 obesity due to excess calories without serious comorbidity with 09/03/2018 body mass index (BMI) of 34.0 to 34.9 in adult Family History Medical History Relation Comments Diabetes Maternal Grandfather Relation Status Comments Maternal Grandfather Alive Social History Tobacco Use Types Packs/Day Years Used Date Never Smoker Smokeless Tobacco: Never Used Alcohol Use Standard Drinks/Week Comments No 0 (1 standard drink = 0.6 oz pure alcoho l) Sex Assigned at Date Recorded Not on file Last Filed Vital Signs Vital Sign Reading Time Taken Comments Blood Pressure 98/64 06/30/2019 1:35 PM CREDIT RISK MODELER Pulse 78 06/30/2019 1:35 PM CREDIT RISK MODELER Temperature 36.6 ??C (97.9 ??F) 06/30/2019 1:35 PM CREDIT RISK MODELER Respiratory Rate 16 06/30/2019 1:35 PM CREDIT RISK MODELER Oxygen Saturation 98% 06/30/2019 1:35 PM CREDIT RISK MODELER Inhaled Oxygen Concentration - - Weight 64.4 kg (142 lb) 10/01/2019 3:12 PM CDT pt repor eted Height 165.7 cm (5' 5.25) 10/01/2019 3:12 PM CDT Body Mass Index 23.45 10/01/2019 3:12 PM CDT Plan of Treatment Health Maintenance Due Date Last Done Comments ADVANCE CARE PLANNING 1990 ANNUAL REVIEW OF HM ORDERS 1990 PREVENTIVE CARE VISIT 1990 COVID-19 Vaccine (#1) 04/22/1991 HIV SCREENING 2005 HEPATITIS C SCREENING 2008 DTAP/TDAP/TD IMMUNIZATION 10/21/2015 (1 - Tdap) PAP 04/09/2019 04/09/2016 PHQ-2 (once per calendar 06/09/2021 10/01/2019, 06/30/2019, year) 10/06/2018, Additional history exists INFLUENZA VACCINE (#1) 2022 HEPATITIS B IMMUNIZATION Aged Out No long er eligible based on patient 's age to complete this topic IPV IMMUNIZATION Aged Out No longer eligi ble based on patient 's age to complete this topic MENINGITIS IMMUNIZATION Aged Out No longe r eligible based on patient 's age to complete this topic Pneumococcal Vaccine: Aged Out No longer eligible Pediatrics (0 to 5 Years) based on patient's age and At-Risk Patients (6 to to co mplete this topic 64 Years) Insurance Payer Benefit Plan Subscriber ID Effective Dates Phone Address Type / Group AYE/KARIN [facility] [id number] 2017-Juana [phone] [id number] Indemnity [address] [place] [address] Care Teams Cleaner Window Relationship Specialty Start Date End Date [facility], [facility] PCP - General 03/08/[address] [place] [place] [address] Sarah Weiner, YVES WIPING RAG WASHER Assigned PCP 10/01/20 [address] [address], [place] [address]
--- OUTSIDE RECORDS SUMMARY | 2022-01-15 11:01 | XMS_ITS | Encounter Summary ---
:1990 Author Organization [place] Address [address] [place] [address] Care Team Providers Name Role Phone No Ref-Primary, Physician Primary Care Provider [phone] Sarah Weiner MANAGER SECURITY AUTHORS MOTIVATIONAL Unavailable [phone] Encounter Details Date Type Department Care Team Description 12/11/2018 Travel Social History Tobacco Use Types Packs/Day [...] on filedocumented in this encounter Care Teams Aerologist Relationship Specialty Start Date End Date No Ref-Primary, Physician PCP - General 09/02/17 03/07/19 Sarah Weiner, YVES AUTHORS MOTIVATIONAL Assigned PCP 09/06/18 01/22/20 [address] [place] [address] documented as of this encounter
--- OUTSIDE RECORDS SUMMARY | 2022-01-15 11:01 | XMS_ITS | Encounter Summary ---
:1990 Author Organization [place] Address [address] [place] [address]. [place] [address] Care Team Providers Name Role Phone Sarah Weiner JOINT SEALER ENROLLMENT SERVICES VICE PRESIDENT Unavailable [phone] [facility], [facility] Primary Care Provider [phone] Encounter Details Date Type Department Care Team Description 06/30/2019 Travel Social History Tobacco Use Types Packs/Day [...] on filedocumented in this encounter Care Teams Carburizer Relationship Specialty Start Date End Date [facility] PCP - General 03/08/[address] [place] [address] Sarah Weiner APRN ENROLLMENT SERVICES VICE PRESIDENT Assigned PCP 09/06/18 01/22/20 [address] [place] [address] documented as of this encounter
--- OUTSIDE RECORDS SUMMARY | 2022-01-15 11:01 | XMS_ITS | Encounter Summary ---
:1990 Author Organization [place] Address [address] [place] [address]. [place] [address] Care Team Providers Name Role Phone Sarah Weiner RETAIL CUSTOMER SERVICE REPRESENTATIVE SUPERVISOR ORCHARD Unavailable [phone] [facility], [facility] Primary Care Provider [phone] Encounter Details Date Type Department Care Team Description 06/15/2019 Travel Social History Tobacco Use Types Packs/Day [...] on filedocumented in this encounter Care Teams Middle School Librarian Relationship Specialty Start Date End Date [facility] PCP - General 03/08/[address] [place] [place] [address] Sarah Weiner APRN SUPERVISOR ORCHARD Assigned PCP 09/06/18 01/22/20 [address] [place] [address] documented as of this encounter
--- OUTSIDE RECORDS SUMMARY | 2022-01-15 11:01 | XMS_ITS | Encounter Summary ---
:1990 Author Organization [place] Address [address] [place] [address] Care Team Providers Name Role Phone No Ref-Primary, Physician Primary Care Provider [phone] Sarah Weiner REAL ESTATE INVESTOR BIODIESEL OPERATIONS MANAGER Unavailable [phone] Encounter Details Date Type Department Care Team Description 12/04/2018 Travel Social History Tobacco Use Types Packs/Day [...] on filedocumented in this encounter Care Teams Special Client Bus Driver Relationship Specialty Start Date End Date No Ref-Primary, Physician PCP - General 09/02/17 03/07/19 Sarah Weiner, YVES BIODIESEL OPERATIONS MANAGER Assigned PCP 09/06/18 01/22/20 [address] [place] [address] documented as of this encounter
--- OUTSIDE RECORDS SUMMARY | 2022-01-15 11:01 | XMS_ITS | Encounter Summary ---
:1990 Author Organization [place] Address [address] [place] [address]. [place] [address] Care Team Providers Name Role Phone Sarah Weiner DRILL PRESS OPERATOR FUNDING COORDINATOR Unavailable [phone] [facility] Primary Care Provider [phone] Encounter Details Date Type Department Care Team Description 10/04/2019 Travel Social History Tobacco Use Types Packs/Day Years Used Date Never Smoker Smokeless Tobacco: Never Used Alcohol Use Standard Drinks/Week Comments No 0 (1 standard drink = 0.6 oz pure alcoho l) Sex Assigned at Date Recorded Not on file COVID-19 Exposure Response Date Recorded In the last month, have you been in contact with No / Unsure 10/04/2019 7:31 PM CDT someone who was confirmed or suspected to have Coronavirus / COVID-19? documented as of this encounter Plan of Treatment Not on filedocumented as of this encounter Visit Diagnoses Not on filedocumented in this encounter Care Teams Computer Designer Relationship Specialty Start Date End Date [facility] PCP - General 03/08/19 [address] [place], [place] [id number] Sarah Weiner, YVES FUNDING COORDINATOR Assigned PCP 09/06/18 01/22/20 [address] [place] [address] documented as of this encounter
--- OUTSIDE RECORDS SUMMARY | 2022-01-15 11:01 | XMS_ITS | Encounter Summary ---
:1990 Author Organization [place] Address [id number] [place] [address] Care Team Providers Name Role Phone Sarah Weiner APRN, CNP Unavailable [phone] [facility] Primary Care Provider [phone] Reason for Visit Reason Onset Date Comments Recheck Medication 10/01/2019 Control Encounter Details Date Type Department Care Team Description 10/01/2019 Virtual Visit [facility] Sarah Weiner Class 1 obesity due to excess calories without serious comorbidity with body mass index (BMI) of 34.0 to 34.9 in adult (Primary Dx); Clinic [place] YVES Olson CNP Encounter for initial prescription of co ntraceptive pills [address] [place] [phone] [id number] Social History Tobacco Use Types Packs/Day Years Used Date Never Smoker Smokeless Tobacco: Never Used Alcohol Use Standard Drinks/Week Comments No 0 (1 standard drink = 0.6 oz pure alcoho l) Sex Assigned at Date Recorded Not on file documented as of this encounter Last Filed Vital Signs Vital Sign Reading Time Taken Comments Blood Pressure - - Pulse - - Temperature - - Respiratory Rate - - Oxygen Saturation - - Inhaled Oxygen Concentration - - Weight 64.4 kg (142 lb) 10/01/2019 3:12 PM CDT pt repor eted Height 165.7 cm (5' 5.25) 10/01/2019 3:12 PM CDT Body Mass Index 23.45 10/01/2019 3:12 PM CDT documented in this encounter Progress Notes Sarah Weiner APRN CNP - 10/01/2019 3:00 PM CDT Aleyda Palmer is a 28 year old female who is being evaluated via a billable telephone visit. The patient has been notified of following: This telephone visit will be conducted via a call between you and your physician/provider. We have found that certain health care needs can be provided without the need for a physical exam. This service lets us provide the care you need with a short phone conversation. If a prescription is necessary we can send it directly to your pharmacy. If lab work is needed we can place an order for that and you can then stop by our lab to have the test done at a later time. Telephone visits are billed at different rates depending on your insurance coverage. During this emergency period, for some insurers they may be billed the same as an in-person visit. Please reach out to your insurance provider with any questions. If during the course of the call the physician/provider feels a telephone visit is not appropriate, you will not be charged for this service. Patient has given verbal consent for Telephone visit? Yes How would you like to obtain your AVS? E-Mail (inform patient AVS not encrypted) [email or web address] Subjective Aleyda Palmer is a 28 year old female who presents to clinic today for the following health issues: HPI Medication Followup of Control ?? Taking Medication as prescribed: yes ?? Side Effects: None ?? Medication Helping Symptoms: yes She is taking pills in a long cycle; getting periods every 3 months. Likes this method. Remembers to take pills with ease. Needs them refilled today. No side effects. Weight plateaued, so restarted phentermine a few months back. No longer taking it any longer. Current weight is 142. Feels this is a healthy weight for her. Continues to eat a very healthy healthy/clean diet. Training to run a half marathon next spring with brother. She is running every day. Long runsare 9-10 miles and shorter runs are 3-4 days. Current Outpatient Medications Medication Sig Dispense Refill ??? levonorgestrel-ethinyl estradiol (SEASONALE) 0.15-0.03 MG tablet Take 1 tablet by mouth daily 91tablet 0 ??? phentermine (ADIPEX-P) 37.5 MG capsule Take 1 capsule (37.5 mg) by mouth every morning (Patient not taking: Reported on 06/30/2019) 30 capsule 2 No Known Allergies Reviewed and updated as needed this visit by Provider Tobacco Allergies Meds Problems Med Hx Surg Hx Fam Hx Review of Systems ROS COMP: Constitutional, HEENT, cardiovascular, pulmonary, gi and gu systems are negative, except as otherwise noted. Objective Reported vitals: LMP 09/22/2019 alert and no distress PSYCH: Alert and oriented times 3; coherent speech, normal rate and volume, able to articulate logical thoughts, able to abstract reason, no tangential thoughts Her affect is normal RESP: No cough, no audible wheezing, able to talk in full sentences Remainder of exam unable to be completed due to telephone visits Diagnostic Test Results: none Assessment/Plan: 1. Encounter for initial prescription of contraceptive pills (E66.09, Z68.34) Class 1 obesity due to excess calories without serious comorbidity with body mass index (BMI) of 34.0 to 34.9 in adult (primary encounter diagnosis) Comment: no longer on phentermine Plan: normal BMI; continue healthy diet and exercise (Z30.011) Encounter for initial prescription of contraceptive pills Comment: Refilling today. F/u in 3 mos for physical exam. Plan: levonorgestrel-ethinyl estradiol (SEASONALE) 0.15-0.03 MG tablet Return in about 3 months (around 12/31/2019) for Physical Exam. Phone call duration: 7 minutes Sarah Weiner APRN CNP documented in this encounter Plan of Treatment Not on filedocumented as of this encounter Visit Diagnoses Diagnosis Class 1 obesity due to excess calories w ithout serious comorbidity with body mass index (BMI) of 34.0 to 34.9 in adult - P rimary Encounter for initial prescription of co ntraceptive pills General counseling for prescription of o ral contraceptives documented in this encounter Care Teams Reading Aide Relationship Specialty Start Date End Date [facility], [facility] PCP - General 03/08/[address] [place] [address] Sarah Weiner APRN CNP Assigned PCP 09/06/18 01/22/20 [address] [place] [address] documented as of this encounter
--- OUTSIDE RECORDS SUMMARY | 2022-01-15 11:01 | XMS_ITS | Encounter Summary ---
:1990 Author Organization [place] Address [address] [place] [address] Care Team Providers Name Role Phone Sarah Weiner ETHICAL HACKER KENO WRITER/RUNNER Unavailable [phone] Clinic, [facility] Primary Care Provider [phone] Reason for Visit Reason Comments Urgent Care Derm Problem Pt is allergic to a detergen t she used a week ago. Pt broke into hives. Itch and hurts Encounter Details Date Type Department Care Team Description 04/16/2019 Office Visit [facility] Garret Downs M D Allergic dermatitis due Urgent Care [place] 2019 E to other chemical [address] product (Primary Dx) [place], [place] [address] [id number] [place] [address] Social History Tobacco Use Types Packs/Day Years Used Date Never Smoker Smokeless Tobacco: Never Used Alcohol Use Standard Drinks/Week Comments No 0 (1 standard drink = 0.6 oz pure alcoho l) Sex Assigned at Date Recorded Not on file documented as of this encounter Last Filed Vital Signs Vital Sign Reading Time Taken Comments Blood Pressure 120/74 04/16/2019 12:42 PM TECHNICAL LEAD Pulse 81 04/16/2019 12:42 PM TECHNICAL LEAD Temperature 36.3 ??C (97.4 ??F) 04/16/2019 12:42 PM TECHNICAL LEAD Respiratory Rate - - Oxygen Saturation 99% 04/16/2019 12:42 PM TECHNICAL LEAD Inhaled Oxygen Concentration - - Weight 72.6 kg (160 lb) 04/16/2019 12:42 PM TECHNICAL LEAD Height - - Body Mass Index 26.42 03/17/2019 11:50 AM CDT documented in this encounter Patient Instructions Patient InstructionsGarret Downs MD - 04/16/2019 11:35 AM CST follow up with the entry level account manager for further evaluation and treatment on April 22, 2019. follow up in three-four days if the symptoms worsen or fail to improve. Sarna Lotion or Calamine Lotion onto the itchy areas of the skin. NICAL LEAD documented in this encounter Progress Notes Garret Downs MD - 04/16/2019 11:35 AM CST SUBJECTIVE: Aleyda Palmer is a 28 year old female who presents to the clinic today for an itchy painful red blotchy/bumpy rash on both arms, knees. Onset of rash was four days ago. At that time, her accidentally used a laundry detergent which causes allergies to the patient. Rash is worsening. . Quality/symptoms of rash: severe itching, red bumps. Symptoms are severe and rash seems to be worsening.. Previous history of a similar rash? Yes. Previous episodes were triggered by laundry detergent. Recent exposure history: No new foods. No new animals/plants. No new shampoos/soaps. Past Medical History: No major medical problems. Current Outpatient Medications Medication Sig Dispense Refill [...] daily x 3 days. 11 tablet 0 Social History Tobacco Use ??? Smoking status: Never Smoker ??? Smokeless tobacco: Never Used Substance Use Topics ??? Alcohol use: No ROS: CONSTITUTIONAL:NEGATIVE for fever, chills, change in weight INTEGUMENTARY/SKIN: POSITIVE for itchy rash RESP:NEGATIVE for significant cough or SOB EXAM: BP 120/74 Pulse 81 Temp 97.4 ??F (36.3 ??C) (Tympanic) Wt 72.6 kg (160 lb) SpO2 99% BMI 26.42 kg/m?? GENERAL: alert, no acute distress. SKIN: Rash description: Distribution: localized Location: upper arms and forearms and bilateral anterior knees. Color: red, Lesion type: papular, blotchy, scattered discrete lesions with no other findings ASSESSMENT: Contact Dermatitis PLAN: follow up with the entry level account manager for further evaluation and treatment on April 22, 2019. (This visit is already scheduled.) Follow up in three-four days if the symptoms worsen or fail to improve. Sarna Lotion or Calamine Lotion onto the itchy areas of the skin. Garret Downs MD NICAL LEAD documented in this encounter Plan of Treatment Not on filedocumented as of this encounter Visit Diagnoses Diagnosis Allergic dermatitis due to other chemica l product - Primary documented in this encounter Care Teams Drain Technician Relationship Specialty Start Date End Date [facility], [facility] PCP - General 03/08/19 [id number] [address] [place] [address] Sarah Weiner APRN KENO WRITER/RUNNER Assigned PCP 09/06/18 01/22/20 [id number] [place] [address] documented as of this encounter
--- OUTSIDE RECORDS SUMMARY | 2022-01-15 11:01 | XMS_ITS | Encounter Summary ---
:1990 Author Organization [facility] Address [address] [place] [address]. [place] [address] Care Team Providers Name Role Phone Sarah Weiner AUCTIONEER ART SUPERVISOR MACHINE WORKERS Unavailable [phone] [facility], [facility] Primary Care Provider [phone] Encounter Details Date Type Department Care Team Description 04/16/2019 Travel Social History Tobacco Use Types Packs/Day [...] on filedocumented in this encounter Care Teams Hand Laster Relationship Specialty Start Date End Date [facility] PCP - General 03/08/19 COM[address]ER [place] [address] Sarah Weiner APRN SUPERVISOR MACHINE WORKERS Assigned PCP 09/06/18 01/22/20 [id number] [place] [address] documented as of this encounter
--- OUTSIDE RECORDS SUMMARY | 2022-01-15 11:01 | XMS_ITS | Encounter Summary ---
:1990 Author Organization [place] Address [address] [facility] [place] [address] Care Team Providers Name Role Phone Husam Sarahangel Olson JAIL KEEPER BOOMSWING OPERATOR Unavailable [phone] Clinic, [facility] Primary Care Provider [phone] Reason for Visit Reason Onset Date Comments Same Day Appointment 03/17/2019 f/u ER visit for Ce llulitis Encounter Details Date Type Department Care Team Description 03/17/2019 Telephone [facility] Sarah Weiner Same Da y Appointment [facility] [place] WhitneyYVES BOOMSWING OPERATOR (f/u ER visit for [facility], [facility] [address] Cellulitis) [address] [place] [address] [place], [place] [phone] (Wo rk) [address] [phone] Social History Tobacco Use Types Packs/Day Years Used Date Never Smoker Smokeless Tobacco: Never Used Alcohol Use Standard Drinks/Week Comments No 0 (1 standard drink = 0.6 oz pure alcoho l) Sex Assigned at Date Recorded Not on file documented as of this encounter Miscellaneous Notes Telephone Encounter - Isela Fisher RN - 03/17/2019 10:46 AM CDT Spoke with Sarah Weiner. She will see patient at her 11:40am phone appt spot. Patient notified. Isela Fisher RN Telephone Encounter - Olivia Rogers RN - 03/17/2019 9:37 AM CDT Called Pt to discuss below. No answer. Left message advising them to call back into clinic. Awaitingcallback. Olivia Rogers, GALEN -- [facility] Workforce Telephone Encounter - Sarah Weiner APRN CNP - 03/17/2019 9:30 AM CDT Please call--she was started on antibiotics for a cellulits in addition to ?allergic reaction. If this is worsening she should not wait until Friday to be seen for follow up. Sarah Weiner CNP Telephone Encounter - Jazmine Garcia - 03/17/2019 8:55 AM CDT She didn't want any of those so scheduled to see you Friday Jazmine Garcia/JANE Telephone Encounter - Sarah Weiner APRN CNP - 03/17/2019 8:46 AM CDT I already added a patient on for , so I can not add in any more patient's. I did look at AV and it looks like the same day provider has opens. Please assist with scheduling her there. Sarah Weiner CNP Telephone Encounter - Jazmine Garcia - 03/17/2019 8:33 AM CDT Sarah will you add on this patient today for an ER follow up Jazmine Garcia/TC Telephone Encounter - Tere Rodney - 03/17/2019 8:15 AM CDT Patient was seen at [facility] on 03/08/19 for Cellulitis and it's getting worse. Patient would liketo know if Nidia Weiner can see her today? Please call her at [phone]. Tere Rodney Business Analyst Sales Operations documented in this encounter Plan of Treatment Not on filedocumented as of this encounter Visit Diagnoses Not on filedocumented in this encounter Care Teams Portuguese Tutor Relationship Specialty Start Date End Date Clinic, [facility] PCP - General 03/08/19 CLEANER AND PREPARER [address] [place], [place] [id number] Sarah Weiner APRN BOOMSWING OPERATOR Assigned PCP 09/06/18 01/22/20 [id number] [address] [id number] documented as of this encounter
--- OUTSIDE RECORDS SUMMARY | 2022-01-15 11:01 | XMS_ITS | Encounter Summary ---
:1990 Author Organization [place] Address [address] [facility] [place] [address] Care Team Providers Name Role Phone Sarah Weiner UNIT OPERATOR STANDARDS ANALYST Unavailable [facility], [facility] Primary Care Provider [phone] Reason for Visit Reason Comments URI nasly cold and plugged ear Encounter Details Date Type Department Care Team Description 06/30/2019 Office Visit [facility] Jeff Mcgee ction of both eustachian tubes (Primary Dx); [facility] ASHLEY Sandoval Acute non-recurrent maxillary sinusitis; [place] [address] [facility] Encounter for initial prescription of co ntraceptive pills; Road, [address] [place], [place] Class 1 obesity due to exces s calories without serious comorbidity with body mass index (BMI) of 34.0 to 34.9 [place] [phone] Social History Tobacco Use Types Packs/Day Years Used Date Never Smoker Smokeless Tobacco: Never Used Alcohol Use Standard Drinks/Week Comments No 0 (1 standard drink = 0.6 oz pure alcoho l) Sex Assigned at Date Recorded Not on file documented as of this encounter Last Filed Vital Signs Vital Sign Reading Time Taken Comments Blood Pressure 98/64 06/30/2019 1:35 PM AIRFRAME AND POWERPLANT MECHANIC Pulse 78 06/30/2019 1:35 PM AIRFRAME AND POWERPLANT MECHANIC Temperature 36.6 ??C (97.9 ??F) 06/30/2019 1:35 PM AIRFRAME AND POWERPLANT MECHANIC Respiratory Rate 16 06/30/2019 1:35 PM AIRFRAME AND POWERPLANT MECHANIC Oxygen Saturation 98% 06/30/2019 1:35 PM AIRFRAME AND POWERPLANT MECHANIC Inhaled Oxygen Concentration - - Weight 72.1 kg (159 lb) 06/30/2019 1:35 PM AIRFRAME AND POWERPLANT MECHANIC Height 165.7 cm (5' 5.25) 06/30/2019 1:35 PM AIRFRAME AND POWERPLANT MECHANIC Body Mass Index 26.26 06/30/2019 1:35 PM AIRFRAME AND POWERPLANT MECHANIC documented in this encounter Patient Instructions Patient InstructionsJeff Mcgee PA-C - 06/30/2019 1:40 PM AIRFRAME AND POWERPLANT MECHANIC Images from the original note were not included. Patient Education Earache, No Infection (Adult) Earaches can happen without an infection. This occurs when air and fluid build up behind the eardrumcausing a feeling of fullness and discomfort and reduced hearing. This is called otitis media with effusion (OME) or serous otitis media. It means there is fluid in the middle ear. It is not the same as acute otitis media, which is typically from infection. OME can happen when you have a cold if congestion blocks the passage that drains the middle ear. This passage is called the eustachian tube. OME may also occur with nasal allergies or after a bacterialmiddle ear infection. The pain or discomfort may come and go. You may hear clicking or popping sounds when you chew or swallow. You may feel that your balance is off. Or you may hear ringing in the ear. It often takes from several weeks up to 3 months for the fluid to clear on its own. Oral pain relievers and ear drops help if there is pain. Decongestants and antihistamines sometimes help. Antibioticsdon't help since there is no infection. Your doctor may prescribe a nasal spray to help reduce swelling in the nose and eustachian tube. This can allow the ear to drain. If your OME doesn't improve after 3 months, surgery may be used to drain the fluid and insert a small tube in the eardrum to allow continued drainage. Because the middle ear fluid can become infected, it is important to watch for signs of an ear infection which may develop later. These signs include increased ear pain, fever, or drainage from the ear. Home care The following guidelines will help you care for yourself at home: ?? You may use lmaa-xbg-nptjijb medicine as directed to control pain, unless another medicine was prescribed. If you have chronic liver or kidney disease or ever had a stomach ulcer or GI bleeding, talk with your doctor before using these medicines. Aspirin should never be used in anyone under 18 years of age who is ill with a fever. It may cause severe liver damage. ?? You may use xyum-yzv-ifnyfyr decongestants such as phenylephrine or pseudoephedrine. But they arenot always helpful. Don't use nasal spray decongestants more than 3 days. Longer use can make congestion worse. Prescription nasal sprays from your doctor don't typically have those restrictions. ?? Antihistamines may help if you are also having allergy symptoms. ?? You may use medicines such as guaifenesin to thin mucus and promote drainage. Follow-up care Follow up with your healthcare provider or as advised if you are not feeling better after 3 days. When to seek medical advice Call your healthcare provider right away if any of the following occur: ?? Your ear pain gets worse or does not start to improve? Fever of 100.4??F (38??C) or higher, or as directed by your healthcare provider ?? Fluid or blood draining from the ear ?? Headache or sinus pain ?? Stiff neck ?? Unusual drowsiness or confusion Date Last Reviewed: 03/09/2016 ?? [id number] [employer]. [address] [place] [address]. All rights reserved. This information is not intended as a substitute for professional medical care. Always follow your healthcare professional's instructions. RAME AND POWERPLANT MECHANIC documented in this encounter Progress Notes Jeff Mcgee PA-C - 06/30/2019 1:40 PM CST Subjective Aleyda Palmer is a 28 year old female who presents to clinic today for the following health issues: HPI Acute Illness Acute illness concerns: nasally cold and plugged ears Onset: x 2 months ?? Fever: no ?? Chills/Sweats: no ?? Headache (location?): no ?? Sinus Pressure:no ?? Conjunctivitis: no ?? Ear Pain: no pain, but ears are plugged ?? Rhinorrhea: no ?? Congestion: YES ?? Sore Throat: no ?? Cough: [id number]-iqmhkqmvjy, productive of clear sputum ?? Wheeze: no ?? Decreased Appetite: no ?? Nausea: no ?? Vomiting: no ?? Diarrhea: no ?? Dysuria/Freq.: no ?? Fatigue/Achiness: no ?? Sick/Strep Exposure: YES- works at [employer]. Therapies Tried and outcome: vitamins and OTC cold medications, no relief Zyrtec, EmergenC No hx allergies Right ear plugged and very nasal/sinus Did OTC ear wax removal PROBLEMS TO ADD ON... Phentermine- lost 50lbs which she says changed her life. Would like to start again if possible. Wt Readings from Last 10 Encounters: 06/30/19 72.1 kg (159 lb) 04/16/19 72.6 kg (160 lb) 03/17/19 73.9 kg (163 lb) 01/20/19 71.2 kg (157 lb) 12/11/18 76.1 kg (167 lb 11.2 oz) 10/06/18 86.4 kg (190 lb 6.4 oz) 09/03/18 93.4 kg (206 lb) 09/22/17 91.6 kg (202 lb) 09/02/17 90.7 kg (200 lb) Reviewed and updated as needed this visit by Provider Review of Systems ROS COMP: Constitutional, HEENT, cardiovascular, pulmonary, gi and gu systems are negative, except as otherwise noted. Objective BP 98/64 (BP Location: Right arm, Patient Position: Sitting, Cuff Size: Adult Regular) Pulse 78 Temp 97.9 ??F (36.6 ??C) (Oral) Resp 16 Ht 1.657 m (5' 5.25) Wt 72.1 kg (159 lb) SpO2 98% BMI 26.26 kg/m?? Body mass index is 26.26 kg/m??. Physical Exam GENERAL: healthy, alert and no distress HENT: normal cephalic/atraumatic, ear canals and TM's normal, nose and mouth without ulcers or lesions, nasal mucosa edematous and erythematous, oropharynx clear, oral mucous membranes moist and sinuses: maxillary tenderness on both sides NECK: no adenopathy, no asymmetry, masses, or scars and thyroid normal to palpation RESP: lungs clear to auscultation - no rales, rhonchi or wheezes CV: regular rate and rhythm MS: no gross musculoskeletal defects noted, no edema SKIN: no suspicious lesions or rashes PSYCH: mentation appears normal, affect normal/bright Diagnostic Test Results: Labs reviewed in Epic Assessment & Plan 1. Dysfunction of both eustachian tubes Discuss diagnosis. Flonase and supportive cared OTC, Flonase. 2. Acute non-recurrent maxillary sinusitis - amoxicillin-clavulanate (AUGMENTIN) 875-125 MG tablet; Take 1 tablet by mouth 2 times daily Dispense: 20 tablet; Refill: 0 - fluticasone (FLONASE) 50 MCG/ACT nasal spray; [place] 1-2 sprays into both nostrils daily Dispense: 16 g; Refill: 0 3. Encounter for initial prescription of contraceptive pills Refilled. - levonorgestrel-ethinyl estradiol (SEASONALE) 0.15-0.03 MG tablet; Take 1 tablet by mouth daily Dispense: 91 tablet; Refill: 0 4. Class 1 obesity due to excess calories without serious comorbidity with body mass index (BMI) of 34.0 to 34.9 in adult Can restart phentermine today. Has physical with PCP in September. - phentermine (ADIPEX-P) 37.5 MG capsule; Take 1 capsule (37.5 mg) by mouth every morning Dispense: 30 capsule; Refill: 2 BMI: Estimated body mass index is 26.26 kg/m?? as calculated from the following: Height as of this encounter: 1.657 m (5' 5.25). Weight as of this encounter: 72.1 kg (159 lb). Weight management plan: restarting phentermine-- not far to go to get to goal BMI Return in about 3 months (around 09/29/2019) for Physical Exam, Med Check- phentermine. Jeff Mcgee PA-C [facility] RAME AND POWERPLANT MECHANIC documented in this encounter Plan of Treatment Not on filedocumented as of this encounter Visit Diagnoses Diagnosis Dysfunction of both eustachian tubes - P rimary Dysfunction of Eustachian tube Acute non-recurrent maxillary sinusitis Encounter for initial prescription of co ntraceptive pills General counseling for prescription of o ral contraceptives Class 1 obesity due to excess calories w ithout serious comorbidity with body mass index (BMI) of 34.0 to 34.9 in adult documented in this encounter Care Teams Venetian Blind Installer Relationship Specialty Start Date End Date Clinic, [facility] PCP - General 03/08/19 [address] [place], [place] [id number] Sarah Weiner, YVES STANDARDS ANALYST Assigned PCP 09/06/18 01/22/20 [id number] [address] [place] [id number] documented as of this encounter
--- OUTSIDE RECORDS SUMMARY | 2022-01-15 11:01 | XMS_ITS | Encounter Summary ---
:1990 Author Organization [place] Address [facility] [place] [address] Care Team Providers Name Role Phone Sarah Weiner VISUAL SPECIALIST RELATIONS MANAGER Unavailable [phone] [facility], [facility] Primary Care Provider [phone] Reason for Visit Reason Comments Rash Encounter Details Date Type Department Care Team Description 03/08/2019 Emergency [facility] Eri Holcomb PA Rash; Emergency Dept [facility] DELFINO Cellulitis [address] [place] [phone] [place] [address] [place] [address] (Wo rk) Social History Tobacco Use Types Packs/Day Years Used Date Never Smoker Smokeless Tobacco: Never Used Alcohol Use Standard Drinks/Week Comments No 0 (1 standard drink = 0.6 oz pure alcoho l) Sex Assigned at Date Recorded Not on file documented as of this encounter Last Filed Vital Signs Vital Sign Reading Time Taken Comments Blood Pressure 147/95 03/08/2019 6:47 PM CDT Pulse - - Temperature 36.6 ??C (97.8 ??F) 03/08/2019 6:47 PM CDT Respiratory Rate - - Oxygen Saturation 98% 03/08/2019 6:47 PM CDT Inhaled Oxygen Concentration - - Weight - - Height - - Body Mass Index - - documented in this encounter Discharge Instructions Discharge InstructionsEri Miller PA - 03/08/2019 7:03 PM CDT Begin taking the oral steroids to help with inflammation. Also take Zyrtec or Benadryl. Benadryl canbe sedating, just take this before bed. Otherwise he can get Zyrtec ighf-guw-fumphiv and take this in the morning. As there looks like there is early infection over the right leg, also begin taking theantibiotic, Keflex. Also apply the topical steroid cream to the circular lesion on your right foot. Do this consistently for at least 10 days. Apply the cream to the foot twice a day for this. Of time.If not improving at this point, be reevaluated by the clinic listed above or your primary. documented in this encounter Medications at Time of Discharge Medication Sig Dispensed Refills Start Date End Date phentermine (ADIPEX-P) Take 1 capsule 30 capsule 2 9 37.5 MG (37.5 mg) by mouth capsuleIndications: Class every morning 1 obesity due to excess calories without serious comorbidity with body mass index (BMI) of 34.0 to 34.9 in adult cephALEXin (KEFLEX) 500 Take 1 capsule (500 20 capsule 0 03/13/2019 MG capsule mg) by mouth 4 times daily for 5 days triamcinolone (KENALOG) 80 grams 453.6 g 0 03/08/2019 1 0.1 % external cream levonorgestrel-ethinyl Take 1 tablet by 84 tablet 1 019 06/30/2019 estradiol (SEASONALE) mouth daily 0.15-0.03 MG tabletIndications: Encounter for initial prescription of contraceptive pills predniSONE (DELTASONE) 20 Take 2 tablets (40 10 tablet 0 04/16/2019 MG tablet mg) by mouth daily for 5 days documented as of this encounter ED Notes Tariq Mendosa RN - 03/08/2019 6:46 PM CDT A&O x4, ABCs intact. Pt presents with itchy rash to bilat. LE. Pt states she's had it for a couple of weeks and it's just getting worse. Eri Miller PA - 03/08/2019 6:44 PM CDT History Chief Complaint: Rash HPI Aleyda aPlmer is a 28 year old female who presents with rash to bilateral lower extremities that is now spread to her arms. Patient notes that she began to have the rash a few weeks ago. It started with a circular erythematous region on the top of her right foot. It has since spread, causing small red bumps to cover her feet and lower legs. She is developing a circular red lesion on the front of her right her as well. She now has a rash on her right hand and arm. It is pruritic. She denies any fevers. She has not had similar rash in the past. She denies any new soaps, lotions, laundry detergents, clothes, foods. She has tried topical hydrocortisone with no significant relief. Denies any facial s welling or difficulty breathing or swallowing. Allergies: No Known Allergies Medications: cephALEXin (KEFLEX) 500 MG capsule predniSONE (DELTASONE) 20 MG tablet triamcinolone (KENALOG) 0.1 % external cream levonorgestrel-ethinyl estradiol (SEASONALE) 0.15-0.03 MG tablet phentermine (ADIPEX-P) 37.5 MG capsule Past Medical History: No past medical history on file. Patient Active Problem List Diagnosis Date Noted ??? Class 1 obesity due to excess calories without serious comorbidity with body mass index (BMI) of34.0 to 34.9 in adult 09/03/2018 Priority: Medium Past Surgical History: None Family History: family history includes Diabetes in her maternal grandfather. Social History: reports that she has never smoked. She has never used smokeless tobacco. She reports that she does not drink alcohol or use drugs. Presents the ED by herself. PCP: [facility] Review of Systems Constitutional: Negative for fever. HENT: Negative for facial swelling. Respiratory: Negative for shortness of breath. Skin: Positive for rash. All other systems reviewed and are negative. Physical Exam Patient Vitals for the past 24 hrs: BP Temp Temp src Heart Rate SpO2 03/08/19 1847 (!) 147/95 97.8 ??F (36.6 ??C) Temporal 103 98 % Physical Exam General: Well appearing, well nourished. Normal mood and affect. Skin: Large circular erythematous region without central clearing to the dorsal aspect of the right foot. Mild raising of borders around this lesion. It is approximately 3 cm x 3 cm. Small erythematousmacules seen on bilateral feet extending up the patient's legs to mid thigh. Greatest clustering is seen in the shins and feet. There are also scattered lesions on the right arm. No lesions on the chest, abdomen, back. There is a region of increased erythema and warmth to the right her. This appears to be the region where the patient has been scratching the greatest amount. No central region of fluctuance. HEENT: Head: Normocephalic, atraumatic, no visible masses. No facial swelling. Eyes: Conjunctiva clear. Cardiac: Normal rate and regular rhythm, no murmur or gallop. Lungs: Clear to auscultation. Abdomen: Abdomen soft, non-tender. No rebound tenderness of guarding. Musculoskeletal: Normal gait and station. No calf tenderness or swelling. Neurologic: Oriented x 3. GCS: 15. Psychiatric: Intact recent and remote memory, judgment and insight, normal mood and affect. Emergency Department Course Imaging: None Laboratory: None Procedures: None Interventions: None Emergency Department Course: Past medical records, nursing notes, and vitals reviewed. I performed an exam of the patient and obtained history, as documented above. I rechecked the patient. Findings and plan explained to the Patient. She was in agreement with the treatment plan. Impression & Plan Medical Decision Making: Aleyda Palmer is a 28 year old female who presented to the ED here today for evaluation of rash. Differentials considered included allergic phenomena, angioedema, cellulitis, vasculitis, drug reaction, viral exanthem, SJS, TEN, atopic dermatitis, psoriasis, tinea infections, amongst others. Symptomshere today most consistent with allergic phenomena. There are no signs of systemic reaction such as angioedema, respiratory compromise, shock, oropharynx edema, etc. there was a region that I am concerned of early cellulitis on the right her and will prescribe antibiotics for this. However, the patient overall looks well here today without signs of serious allergic reaction/anaphylaxis. There is also a large circular patch on the patient's right foot. I advised topical steroids over this region. They were discharged with triamcinolone, Keflex, prednisone. They will follow-up with her primary care provider within the next 2-3 days for recheck. I also advised her to use Zyrtec and Benadryl. They will return to the ED for any changing worsening symptoms, wheezing, progressive shortness of breath, facial or throat/tongue swelling, new concerns. All questions were answered prior to patient's discharge. They were in agreement with the treatment plan as stated above. Diagnosis: ICD-10-CM 1. Rash R21 2. Cellulitis L03.90 Discharge Medications: Discharge Medication List as of 03/08/2019 7:19 PM START taking these medications Details cephALEXin (KEFLEX) 500 MG capsule Take 1 capsule (500 mg) by mouth 4 times daily for 5 days, Disp-20 capsule, R-0, Local Print predniSONE (DELTASONE) 20 MG tablet Take 2 tablets (40 mg) by mouth daily for 5 days, Disp-10 tablet, R-0, Local Print triamcinolone (KENALOG) 0.1 % external cream 80 gramsDisp-453.6 g, R-0Local Print DELFINO Rodriguez This was created at least in part with a voice recognition software. Mistakes/typos may be present. Eri Miller PA 03/08/19 2213 documented in this encounter Plan of Treatment Not on filedocumented as of this encounter Visit Diagnoses Diagnosis Rash Rash and other nonspecific skin eruption Cellulitis Cellulitis and abscess of unspecified si te documented in this encounter Care Teams School Coordinator Relationship Specialty Start Date End Date Clinic, [facility] PCP - General 03/08/[address] [place] [address] Sarah Weiner APRN RELATIONS MANAGER Assigned PCP 09/06/18 01/22/20 [id number] UMA RUANO [id number] documented as of this encounter
--- OUTSIDE RECORDS SUMMARY | 2022-01-15 11:01 | XMS_ITS | Encounter Summary ---
:1990 Author Organization [place] Address [address] [place] [address]. [place] [address] Care Team Providers Name Role Phone No Ref-Primary, Physician Primary Care Provider [phone] Jeff Mcgee PA-C Unavailable [phone] Jeff Mcgee PA-C Unavailable [phone] Reason for Visit Reason Comments New Patient Contraception Encounter Details Date Type Department Care Team Description 09/22/2017 Office Visit [facility] Jeff Mcgee for initial Clinic [place] [address] [place] [address], [address] [place] [address] (Primary Dx) [place], [place] [id number] Social History Tobacco Use Types Packs/Day Years Used Date Never Smoker Smokeless Tobacco: Never Used Alcohol Use Standard Drinks/Week Comments No 0 (1 standard drink = 0.6 oz pure alcoho l) Sex Assigned at Date Recorded Not on file documented as of this encounter Last Filed Vital Signs Vital Sign Reading Time Taken Comments Blood Pressure 112/80 09/22/2017 10:38 AM CDT Pulse 90 09/22/2017 10:38 AM CDT Temperature 36.8 ??C (98.3 ??F) 09/22/2017 10:38 AM CDT Respiratory Rate 20 09/22/2017 10:38 AM CDT Oxygen Saturation - - Inhaled Oxygen Concentration - - Weight 91.6 kg (202 lb) 09/22/2017 10:38 AM CDT Height 165.7 cm (5' 5.25) 09/22/2017 10:38 AM CDT Body Mass Index 33.36 09/22/2017 10:38 AM CDT documented in this encounter Progress Notes Jeff Mcgee PA-C - 09/22/2017 10:40 AM CDT SUBJECTIVE: Aleyda Palmer is a 26 year old female who presents to clinic today for the following health issues: Medication Followup of control ?? Taking Medication as prescribed: NO ?? Side Effects: None ?? Medication Helping Symptoms: yes Patient states she moved here about a year ago from [place], has been on control in the past, just not in the past few months. Has a 6 & 4 year old children. is in the [employer] so they move a lot. LMP 08/28 and normal. Please abstract the following data from this visit with this patient into the appropriate field in [facility]: Pap smear done on this date: Apr 2016 (approximately), by this group: [facility], results werenormal. Problem list and histories reviewed & adjusted, as indicated. Additional history: as documented Reviewed and updated as needed this visit by clinical staff Tobacco Allergies Meds Problems Med Hx Surg Hx Fam Hx Soc Hx Reviewed and updated as needed this visit by Provider ROS: Constitutional, HEENT, cardiovascular, pulmonary, gi and gu systems are negative, except as otherwise noted. OBJECTIVE: BP 112/80 (BP Location: Right arm, Patient Position: Sitting, Cuff Size: Adult Large) Pulse 90 Temp 98.3 ??F (36.8 ??C) (Oral) Resp 20 Ht 5' 5.25 (1.657 m) Wt 202 lb (91.6 kg) LMP 08/28/2017 (Approximate) BMI 33.36 kg/m2 Body mass index is 33.36 kg/(m^2). GENERAL: healthy, alert and no distress CV: regular rate and rhythm, normal S1 S2, no S3 or S4, no murmur MS: no gross musculoskeletal defects noted, no edema SKIN: no suspicious lesions or rashes PSYCH: mentation appears normal, affect normal/bright Diagnostic Test Results: none ASSESSMENT/PLAN: 1. Encounter for initial prescription of contraceptive pills Will get PAP info from her previous clinic. MATTHIAS filled out. Follow up one year for physical, sooner as needed. - norgestim-eth estrad triphasic (ZAIDAESSA, 28,) 0.18/0.215/0.25 MG-35 MCG per tablet; Take 1 tabletby mouth daily Dispense: 84 tablet; Refill: 3 Jeff Mcgee PA-C [facility] documented in this encounter Plan of Treatment Not on filedocumented as of this encounter Visit Diagnoses Diagnosis Encounter for initial prescription of co ntraceptive pills - Primary General counseling for prescription of o ral contraceptives documented in this encounter Care Teams Property Disposal Officer Relationship Specialty Start Date End Date No Ref-Primary, Physician PCP - General 09/02/17 03/07/19 Jeff Mcgee PA-C PCP - Assigned PCP 09/04/17 08/11/18 [id number] UMA RUANO [id number] Jeff Mcgee PA-C Assigned PCP 09/04/17 09/05/18 07469 UMA RUANO [id number] documented as of this encounter
--- OUTSIDE RECORDS SUMMARY | 2022-01-15 11:01 | XMS_ITS | Encounter Summary ---
:1990 Author Organization [place] Address [address] [place] [address] Care Team Providers Name Role Phone No Ref-Primary, Physician Primary Care Provider [phone] Sarah Weiner GRANULATING MACHINE OPERATOR LITHOGRAPHIC PHOTOGRAPHER APPRENTICE Unavailable [phone] Encounter Details Date Type Department Care Team Description 10/06/2018 Travel Social History Tobacco Use Types Packs/Day [...] on filedocumented in this encounter Care Teams Hatch Tender Relationship Specialty Start Date End Date No Ref-Primary, Physician PCP - General 09/02/17 03/07/19 Sarah Weiner, YVES LITHOGRAPHIC PHOTOGRAPHER APPRENTICE Assigned PCP 09/06/18 01/22/20 [address] [place] [address] documented as of this encounter
--- OUTSIDE RECORDS SUMMARY | 2022-01-15 11:01 | XMS_ITS | Encounter Summary ---
:1990 Author Organization [place] Address [address] [place] [address]. [place] [address] Care Team Providers Name Role Phone Sarah Weiner CREDIT SPECIALIST ARTIFICIAL BREAST FABRICATOR Unavailable [phone] [facility] Primary Care Provider [phone] Encounter Details Date Type Department Care Team Description 03/08/2019 Travel Social History Tobacco Use Types Packs/Day [...] on filedocumented in this encounter Care Teams Steam Table Associate Relationship Specialty Start Date End Date [facility] PCP - General 03/08/19 [address] [place] [address] [place] [address] Sarah Weiner APRN ARTIFICIAL BREAST FABRICATOR Assigned PCP 09/06/18 01/22/20 [address] [place] [address] documented as of this encounter
--- OUTSIDE RECORDS SUMMARY | 2022-01-15 11:01 | XMS_ITS | Encounter Summary ---
:1990 Author Organization [place] Address [address] [facility] [place] [address] Care Team Providers Name Role Phone No Ref-Primary, Physician Primary Care Provider [phone] Sarah Weiner APRN GENERAL HOUSE WORKER Unavailable [phone] Reason for Visit Reason Comments Weight Check Recheck Medication phentermine Encounter Details Date Type Department Care Team Description 10/06/2018 Office Visit [facility] Sarah Weiner Class 1 obesity due [facility] [place] YVES Olson CNP to excess calories [place] [address], [address] [place] [address] comorbidity with body [place], [place] [phone] (Wo rk) [place] ([place] [phone] 34.0 to 34.9 in adult [phone] Social History Tobacco Use Types Packs/Day Years Used Date Never Smoker Smokeless Tobacco: Never Used Alcohol Use Standard Drinks/Week Comments No 0 (1 standard drink = 0.6 oz pure alcoho l) Sex Assigned at Date Recorded Not on file documented as of this encounter Last Filed Vital Signs Vital Sign Reading Time Taken Comments Blood Pressure 128/88 10/06/2018 9:08 AM CDT Pulse 84 10/06/2018 9:08 AM CDT Temperature 36.6 ??C (97.9 ??F) 10/06/2018 9:08 AM CDT Respiratory Rate 16 10/06/2018 9:08 AM CDT Oxygen Saturation - - Inhaled Oxygen Concentration - - Weight 86.4 kg (190 lb 6.4 oz) 10/06/2018 9:08 AM CDT Height - - Body Mass Index 31.44 09/03/2018 9:50 AM CDT documented in this encounter Patient Instructions Patient InstructionsStronSarah pereira APRN CNP - 10/06/2018 9:00 AM CDT Call for refill in 1 month. documented in this encounter Progress Notes Sarah Weiner APRN CNP - 10/06/2018 9:00 AM CDT SUBJECTIVE: Aleyda Palmer is a 27 year old female who presents to clinic today for the following health issues: Medication Followup of Adipex ?? Taking Medication as prescribed: yes ?? Side Effects: None ?? Medication Helping Symptoms: yes Only eaten fast food once in the last month. It was [employer] and she chose the zucchini noodle option. Hasn't drank any soda in the last month. She has also tried to cut down on dairy as well as carbs. Easter was tough, but she avoided the candy. Getting to the gym 4-5x/week. Walks to the park with her kids on the weekends. Feeling really committed to diet changes. She is happy with her weight loss so far. Wt Readings from Last 4 Encounters: 10/06/18 86.4 kg (190 lb 6.4 oz) 09/03/18 93.4 kg (206 lb) 09/22/17 91.6 kg (202 lb) 09/02/17 90.7 kg (200 lb) Additional history: as documented Reviewed and updated as needed this visit by clinical staff Tobacco Allergies Meds Problems Med Hx Surg Hx Fam Hx Soc Hx Reviewed and updated as needed this visit by Provider Current Outpatient Medications Medication Sig Dispense Refill ??? phentermine (ADIPEX-P) 37.5 MG capsule Take 1 capsule (37.5 mg) by mouth every morning 30 capsule 0 No Known Allergies ROS: Constitutional, HEENT, cardiovascular, pulmonary, gi and gu systems are negative, except as otherwise noted. OBJECTIVE: BP 128/88 (BP Location: Right arm, Patient Position: Sitting, Cuff Size: Adult Regular) Pulse 84 Temp 97.9 ??F (36.6 ??C) (Oral) Resp 16 Wt 86.4 kg (190 lb 6.4 oz) LMP 09/05/2018 BMI 31.44 kg/m?? Body mass index is 31.44 kg/m??. GENERAL: healthy, alert and no distress PSYCH: mentation appears normal, affect normal/bright Diagnostic Test Results: none ASSESSMENT/PLAN: 1. Class 1 obesity due to excess calories without serious comorbidity with body mass index (BMI) of 34.0 to 34.9 in adult Doing very well with phentermine. Congratulated her on her diet changes. She has made great strides towards improving diet and making healthier choices. Can call for refill in 1 month; OV in 2 mos. - phentermine (ADIPEX-P) 37.5 MG capsule; Take 1 capsule (37.5 mg) by mouth every morning Dispense: 30 capsule; Refill: 0 Sarah Weiner APRN CNP [facility] documented in this encounter Nursing Notes Jessica Gamino CMA - 10/06/2018 9:00 AM CDT Chief Complaint Patient presents with ??? Weight Check ??? Recheck Medication phentermine Initial BP 128/88 (BP Location: Right arm, Patient Position: Sitting, Cuff Size: Adult Regular) Pulse 84 Temp 97.9 ??F (36.6 ??C) (Oral) Resp 16 Wt 86.4 kg (190 lb 6.4 oz) LMP 09/05/2018 BMI 31.44 kg/m?? Estimated body mass index is 31.44 kg/m?? as calculated from the following: Height as of 09/03/18: 1.657 m (5' 5.25). Weight as of this encounter: 86.4 kg (190 lb 6.4 oz). BP completed using cuff size regular right arm Jessica Gamino CMA documented in this encounter Plan of Treatment Not on filedocumented as of this encounter Visit Diagnoses Diagnosis Class 1 obesity due to excess calories w ithout serious comorbidity with body mass index (BMI) of 34.0 to 34.9 in adult documented in this encounter Care Teams Web Designer Relationship Specialty Start Date End Date No Ref-Primary, Physician PCP - General 09/02/17 03/07/19 Sarah Weiner, YVES GENERAL HOUSE WORKER Assigned PCP 09/06/18 01/22/20 [id number] [address] [id number] documented as of this encounter
--- OUTSIDE RECORDS SUMMARY | 2022-01-15 11:01 | XMS_ITS | Encounter Summary ---
:1990 Author Organization [place] Address [address] [place] [address] Care Team Providers Name Role Phone No Ref-Primary, Physician Primary Care Provider [phone] Jeff Mcgee PA-C Unavailable [phone] Encounter Details Date Type Department Care Team Description 09/02/2018 Travel Social History Tobacco Use Types Packs/Day [...] on filedocumented in this encounter Care Teams Dietitian Consultant Relationship Specialty Start Date End Date No Ref-Primary, Physician PCP - General 09/02/17 03/07/19 Jeff Mcgee PA-C Assigned PCP 09/04/17 09/05/18 [address] [facility] [address] documented as of this encounter
--- OUTSIDE RECORDS SUMMARY | 2022-01-15 11:01 | XMS_ITS | Encounter Summary ---
:1990 Author Organization [place] Address [address] [place] [address]. [place] [address] Care Team Providers Name Role Phone Sarah Weiner OFFENDER JOB RETENTION SPECIALIST ZONE SUPERVISOR FIREARMS Unavailable [phone] [facility], [facility] Primary Care Provider [phone] Encounter Details Date Type Department Care Team Description 03/17/2019 Travel Social History Tobacco Use Types Packs/Day [...] on filedocumented in this encounter Care Teams Deputy Director Of Public Works Relationship Specialty Start Date End Date [facility] PCP - General 03/08/[address] [place] [address] [place] [address] Sarah Weiner APRN ZONE SUPERVISOR FIREARMS Assigned PCP 09/06/18 01/22/20 [address] [place] [address] documented as of this encounter
--- OUTSIDE RECORDS SUMMARY | 2022-01-15 11:01 | XMS_ITS | Encounter Summary ---
:1990 Author Organization [place] Address [address] [place] [address] Care Team Providers Name Role Phone No Ref-Primary, Physician Primary Care Provider [phone] Sarah Weiner MACHINE CASTINGS PLASTERER TRANSITION TEACHER Unavailable [phone] Encounter Details Date Type Department Care Team Description 01/20/2019 Travel Social History Tobacco Use Types Packs/Day [...] on filedocumented in this encounter Care Teams Underliner Relationship Specialty Start Date End Date No Ref-Primary, Physician PCP - General 09/02/17 03/07/19 Sarah Weiner, YVES TRANSITION TEACHER Assigned PCP 09/06/18 01/22/20 [address] [place] [address] documented as of this encounter
--- OUTSIDE RECORDS SUMMARY | 2022-01-15 11:01 | XMS_ITS | Encounter Summary ---
:1990 Author Organization [place] Address [address] [place] [address] Care Team Providers Name Role Phone No Ref-Primary, Physician Primary Care Provider [phone] Jeff Mcgee PA-C Unavailable [phone] Encounter Details Date Type Department Care Team Description 09/03/2018 Travel Social History Tobacco Use Types Packs/Day [...] on filedocumented in this encounter Care Teams Telecommunicator Relationship Specialty Start Date End Date No Ref-Primary, Physician PCP - General 09/02/17 03/07/19 Jeff Mcgee PA-C Assigned PCP 09/04/17 09/05/18 [address] [facility] [place] [address] documented as of this encounter
--- OUTSIDE RECORDS SUMMARY | 2022-01-15 11:01 | XMS_ITS | Encounter Summary ---
:1990 Author Organization [place] Address [address] [place] [address]. [place] [address] Care Team Providers Name Role Phone No Ref-Primary, Physician Primary Care Provider [phone] Sarah Weiner INSTRUCTIONAL PARAPROFESSIONAL WAXER FLOOR Unavailable [phone] Reason for Visit Reason Comments Contraception want to restart BC Encounter Details Date Type Department Care Team Description 01/20/2019 Office Visit [facility] Sarah Weiner er for initial Clinic [place] [address] [place] [address] [facility] contraceptive pills [facility], [address] [place] [address] (Primary Dx) [place] [address] [phone] Social History Tobacco Use Types Packs/Day Years Used Date Never Smoker Smokeless Tobacco: Never Used Alcohol Use Standard Drinks/Week Comments No 0 (1 standard drink = 0.6 oz pure alcoho l) Sex Assigned at Date Recorded Not on file documented as of this encounter Last Filed Vital Signs Vital Sign Reading Time Taken Comments Blood Pressure 116/78 01/20/2019 8:46 AM CDT Pulse 100 01/20/2019 8:46 AM CDT Temperature 36.7 ??C (98.1 ??F) 01/20/2019 8:46 AM CDT Respiratory Rate 16 01/20/2019 8:46 AM CDT Oxygen Saturation 95% 01/20/2019 8:46 AM CDT Inhaled Oxygen Concentration - - Weight 71.2 kg (157 lb) 01/20/2019 8:46 AM CDT Height 165.7 cm (5' 5.25) 01/20/2019 8:46 AM CDT Body Mass Index 25.93 01/20/2019 8:46 AM CDT documented in this encounter Progress Notes [facility] Sarahfadia Olson, INSTRUCTIONAL PARAPROFESSIONAL WAXER FLOOR - 01/20/2019 8:40 AM CDT Subjective Aleyda Palmer is a 28 year old female who presents to clinic today for the following health issues: HPI Patient is here to restart control. Previously she has been on OCPs. She tolerated these well in the past. She would like to be on a pill that she can take in a long cycle and only have a period 4 times a year. LMP: 01/07/2019 She is sexually active. Periods are regular. She is not a smoker. Has 2 children and is not wanting any more children. Current Outpatient Medications Medication Sig Dispense Refill [...] negative, except as otherwise noted. Objective BP 116/78 (BP Location: Right arm, Patient Position: Sitting, Cuff Size: Adult Regular) Pulse 100 Temp 98.1 ??F (36.7 ??C) (Oral) Resp 16 Ht 1.657 m (5' 5.25) Wt 71.2 kg (157 lb) LMP 01/07/2019 (Approximate) SpO2 95% BMI 25.93 kg/m?? Body mass index is 25.93 kg/m??. Physical Exam GENERAL: healthy, alert and no distress PSYCH: mentation appears normal, affect normal/bright Diagnostic Test Results: Results for orders placed or performed in visit on 01/20/19 HCG Qual, Urine ([id number]) Result Value Ref Range HCG Qual Urine Negative NEG^Negative Assessment & Plan 1. Encounter for initial prescription of contraceptive pills Risks, benefits and side effects discussed. Back up method x 1 week. Briefly discussed other options--she may consider nexplanon in the future. - HCG Qual, Urine ([id number])--negative - levonorgestrel-ethinyl estradiol (SEASONALE) 0.15-0.03 MG tablet; Take 1 tablet by mouth daily Dispense: 84 tablet; Refill: 1 Return in about 2 months (around 03/22/2019) for Physical Exam, pap. Sarah Weiner APRN CNP [facility] documented in this encounter Plan of Treatment Not on filedocumented as of this encounter Procedures Procedure Name Priority Date/Time Associated Diagnosis Comme nts HCG QUALITATIVE Routine 01/20/2019 9:00 AM Encounter for initi al Results for this URINE CDT prescription of procedure ar e in contraceptive pills the resu lts section. documented in this encounter Results HCG Qual, Urine ([id number]) (01/20/2019 9:00 AM CDT) Analysis Performed At Patho logist Time Signature HCG Qual Urine Negative NEG^Negati 01/20/2019 [facility] 9:12 AM CDT [facility] Comment: This test is for screening purposes. ??R esults should be interpreted along with the clinical picture. ??Confirmation te sting is available if warranted by ordering [id number], HCG Quantitative Pregna ncy. Specimen Anatomical Collection Method Collection Time Receive d Time (Source) Location / / Volume Laterality Urine specimen 01/20/2019 9:00 AM 019 9:05 (specimen) CDT AM CDT Sarah Weiner APRN, CNP LAB - URINE ORDERABLES Performing Organization Address City/State/ZIP Code Phon e Number [facility] [place], [place] [id number] documented in this encounter Visit Diagnoses Diagnosis Encounter for initial prescription of co ntraceptive pills - Primary General counseling for prescription of o ral contraceptives documented in this encounter Care Teams Hair Salon Manager Relationship Specialty Start Date End Date No Ref-Primary, Physician PCP - General 09/02/17 03/07/19 Sarah Weiner APRN CNP Assigned PCP 09/06/18 01/22/20 [id number] [place], [place] [phone] documented as of this encounter
== END 2021-12-19 02:00 | disposition home or self-care (01) ==
LOC: OB OUT 23:22 → OB 12-19 01:52
PROVIDERS: Visit Provider Advanced Practice Midwife
DX: Z34.93 Encounter for supervision of normal pregnancy, unspecified, third trimester (principal); Z3A.39 39 weeks gestation of pregnancy
CPT/HCPCS: 59025; 99211; 99213

== ENCOUNTER 2021-12-19 09:37 | Inpatient (IN) | payer BC, SELFPAY ==
[2021-12-19] VITALS (16 sets, daily range): BP systolic 103–134; BP diastolic 60–93; PULSE 76–106; RESP 16–18; TEMP 36.6–36.9; O2SAT 98–99; BMI 30.9
--- NOTE | 2021-12-19 11:10 | W.PM.LDBA ---
Subjective History of Present Illness Time Seen by Provider: 10:40 Date Seen: 12/19/21 Narrative: Patient is being admitted to Labor and Delivery for active labor. She is a 31 year old at weeks gestation. Her full history and physical was dictated by Kera Chowdary on 12/07/21. Please see this for details. Pt was seen in the clinic yesterday and membrane sweep done at her request. Triaged by L & D last night for increasing ctx, but no cevical change noted and she returned home. States did have a few gushes this AM w/ loss of her mucus plug, but did not continue to leak fluid. Ctx became more intense around 0930 and she returned to L & D for assessment. Decision made to admit for active labor at that time. Partner by bedside for support. G5, P2022 Fiance: Brad (This is his first child) Kids: 10 y.o. Ibeth, 7 y.o. Mario 1. H/o 2 miscarriages in 2020; reports Rh negative blood type; did NOT receive rhogam following miscarriages 2. BMI 30.8: hgb A1C: 5.4 3. Continued nausea, occ vomiting. Has through all other pregnancies. Declines medication. 4. blood type: A negative Declined Rhogam at 28 weeks, may accept at 30 weeks PLEASE ASK AGAIN. Declined again at 30 weeks. 5. Hx of COVID 04/2021 32 week growth US: 47%ile 36 week growth US: declined Weekly monitoring: declined 39 week IOL: declines 6. Weight loss Down 7lbs at 6/8 or 34 weeks; Consider growth US if any change in FH or continued weight loss H & P done 12/07/21 by Kera Chowdary OB - H&P: Exam Physical Exam: Vital signs: Pulse BP 87 121/88 12/19/21 10:22 12/19/21 10:22 Constitutional: Constitutional: no acute distress and cooperative Routine HEENT Exam: Head: Present normal inspection Routine Neck Exam: Neck: Present full ROM Routine Respiratory Exam: Respiratory: Present CTA bilaterally Routine Cardiovascular Exam: Cardiovascular: RRR Routine Abdominal Exam: Abdominal: Present soft Comments: Gravid Routine Exam: External: Present normal external exam Perineum Description: Normal Detailed Labor and Delivery Exam: Patient Gravid: yes Dilation (cm): 5 (5-6) Effacement (%): 80 Contraction frequency (min): 2 (2-3) Contraction intensity: Strong/Firm Fetus (Single): Station: 0 (Per RN) Heart Rate Baseline: 140 Monitor Accelerations: Present Monitor Decelerations: None Video And Sound Recorder Variability: Average (6-10) (Moderate) Routine Extremities Exam: Extremities: Present full ROM and normal inspection Routine Back/Spine/Pelvis Exam: Back/Spine: full ROM Routine Skin Exam: Present intact Routine Neurological Exam: Present alert and oriented X3 Routine Psychiatric Exam: Present normal affect OB - Problem Based A/P Additional Plan (1) : Status: Acute (2) Active labor: Status: Acute Plan Assessment: at 39.1 weeks GBS neg Hyperemesis, declined medication in Covid in Active labor Plan: Admit to L & D. Candidate for analgesia of choice. Planning unmedicated . Desires waterbirth. Hep C negative and consent signed. Expectant management at this time. Anticipate progress to NVD. Delivery/Labor/Induction Plan Plan: expectant management
[2021-12-19 11:15] LABS: SARS PCR* Negative SARS-CoV-2 (Negative)
[2021-12-19] MEDS: OXYTOCIN 10 UNIT/ML INJ IM (12:46)
--- NOTE | 2021-12-19 12:47 | P.OBPRC_ITS ---
Procedure Delivery date: 12/19/21 Procedure Done: Global Procedure Details: The patient is a 31 year-old G5 now P 3 admitted on 12/19/21 at 39 Weeks, 1 Days gestation for active labor.? Cervical exam on admission was 5-6 cm/80 % effaced/0 station per RN with membranes likely intact in vertex presentation.? Contractions were every 2-3 minutes.? heart rate demonstrated baseline 140 bpm with moderate variability, + accelerations, - decelerations; a category 1 tracing.? SROM occurred sometime in labor with clear fluid. ? Labor Analgesia:?None ? Pitocin:? Only PP for increased bleeding noted after delivery of placenta. ? Labor onset:? 929 ? Complete:? unknown ? Pushing:? 1114 increased pressure and occ spontaneous baring down noted. 1150 actively baring down w/ ctx. ? heart tones during second stage were reassuring per doppler. At bedside to assess pt. Breathing through ctx in the tub and in good control. Called back to room immediately as pt was noting increased pressure and some urge to push. CNMs remained at tubside for labor support. Aleyda labored in various positions in the tub. Spontaneously noted to be baring down more as labor progressed. ? At 1155 a viable female delivered in vertex OA presentation over intact perineum via spontaneous vaginal delivery in the tub.? Infant was placed on maternal abdomen.? Cord was clamped and cut after a 5+ minute delay.? Nose and mouth were bulb suctioned.? Infant weight pending.? 8 at 1 minute and 9 at 5 minutes.? Shoulder dystocia: no.? Nuchal cord: no. ? Placenta delivered spontaneously and complete at 1212 with a 3 vessel cord. ? Mother and were stable after delivery. ? Lacerations:? bilateral periurethrals, not bleeding, not repaired. ? Blood loss: 481 QBL and 175 EBL mL. Blood loss measurement type: QBL & EBL r/t waterbirth ? Sponge and needles counts are correct. Events: Covid Infection in Delivery monitor: external FHT (by doppler, intermittant ) Route of delivery: Laceration description: Periurethral - 1st Degree (bilateral, not bleeding, not repaired.) Estimated blood loss (mL): 656 (QBL 481, EBL 175) Anesthesia type: None Disposition: floor [place] Gender: Female presentation: vertex Placental Delivery Description: Spontaneous Cord Description: 3 Vessels total score - 1 minute: 8 total score - 5 minute: 9 OB Vag Delivery Procedures Additional Procedures Laceration Repair: No
[2021-12-20 05:20] VITALS: BP 111/78; PULSE 78; RESP 16; TEMP 36.6; O2SAT 98
[2021-12-20 07:42] VITALS: BP 120/87; PULSE 86; RESP 16; TEMP 36.4; O2SAT 99
--- NOTE | 2021-12-20 07:45 | PM.OBDSVD1 ---
DS: Providers Provider Date of admission: 12/19/21 09:37 Primary care physician: Not a Local Provider Admitting Clinician: Melania Lima CNM Attending Physician on discharge: Melania Lima CNM DS: Diagnosis Discharge Diagnosis (1) : Status: Acute (2) Active labor: Status: Acute (3) Vaginal delivery: Status: Acute DS: Medications Discharge Medications Other Medication Instructions: Take up to 600mg Ibuprofen and 1000mg Tylenol every 6 hours as needed for pain. Exam Const: Vital Signs, click to edit/add: Vital Signs - 24 hr 12/19/21 10:16 12/19/21 10:22 12/19/21 12:06 Temperature Pulse Rate 96 87 105 H Pulse Rate [Blood Pressure Cuff] Respiratory Rate Blood Pressure 134/93 H 121/88 117/69 Blood Pressure [Le ft Arm] Blood Pressure [Ri ght Arm] Pulse Oximetry 12/19/21 12:28 12/19/21 12:43 12/19/21 12:44 Temperature 98.5 F Pulse Rate 85 106 H Pulse Rate [Blood Pressure Cuff] Respiratory Rate 18 Blood Pressure 127/67 122/74 Blood Pressure [Le ft Arm] Blood Pressure [Ri ght Arm] Pulse Oximetry 12/19/21 13:00 12/19/21 13:14 12/19/21 13:29 Temperature Pulse Rate 98 93 93 Pulse Rate [Blood Pressure Cuff] Respiratory Rate Blood Pressure 103/65 108/73 117/60 Blood Pressure [Le ft Arm] Blood Pressure [Ri ght Arm] Pulse Oximetry 12/19/21 13:43 12/19/21 13:58 12/19/21 14:14 Temperature Pulse Rate 99 88 92 Pulse Rate [Blood Pressure Cuff] Respiratory Rate Blood Pressure 103/63 105/65 108/72 Blood Pressure [Le ft Arm] Blood Pressure [Ri ght Arm] Pulse Oximetry 12/19/21 14:29 12/19/21 15:58 12/19/21 20:35 Temperature 98.5 F 98.3 F Pulse Rate 83 Pulse Rate [Blood Pressure Cuff] 83 76 Respiratory Rate 18 16 Blood Pressure 133/73 Blood Pressure [Le ft Arm] 126/85 Blood Pressure [Ri ght Arm] 133/73 Pulse Oximetry 99 12/19/21 23:20 12/20/21 05:20 Temperature 97.9 F 97.8 F Pulse Rate Pulse Rate [Blood Pressure Cuff] 82 78 Respiratory Rate 16 16 Blood Pressure Blood Pressure [Le ft Arm] 117/83 111/78 Blood Pressure [Ri ght Arm] Pulse Oximetry 98 98 Common normals: no apparent distress, average body habitus, oriented x3, no limitations, healthy appearing, alert and well nourished General appearance: cooperative, comfortable and well kempt Orientation/consciousness: Yes awake HENMT: Common normals: normocephalic and hearing grossly normal bilaterally Head and scalp: normal to inspection and normocephalic Face and sinus: normal facial exam Eye: General eye: normal appearance of both eyes Neck & C-Spine: Common normals: full ROM, supple and no JVD General: normal visual inspection Resp: Common normals: normal respiratory effort, no retractions, no use of accessory muscles and clear to auscultation bilaterally Auscultation: clear to auscultation bilaterally Cardio: Common normals: no JVD, regular rate, regular rhythm, S1 normal heart sound, S2 normal heart sound, no gallops, no clicks, no murmurs and no rub Rate: regular rate Rhythm: regular rhythm Heart sounds: S1 normal and S2 normal GI: Common normals: soft to palpation and non-tender Palpation: soft : Common normals: external appearance normal Uterus: U/2 Lochia: small Manual OB Exam: deferred Extremity: Common normals: normal to inspection and full ROM Neuro: Common normals: oriented x3 Sensorium/orientation: awake and alert Psych: Common normals: mental status grossly normal, cooperative, affect normal and speech normal Appearance: grossly normal and well kempt Speech: normal speech OB - DS: Summary Hospital Course Hospital Course: The patient is a 31 year old G 5 P 3 at 39.2 weeks gestation that was admitted to the Center on 12/19/21 for early labor. She had an uncomplicated vaginal delivery. She delivered a viable female . She is bottle feeding. Discussed comfort measures for engorgement. the patient has done well. Denies feeling dizzy, lightheaded or fatigued and declines Hgb at this time. Declines Rhogam. Educated patient on the risks of declining Rhogam if she would have another . Patient verbalized understanding of risks and declines at this time. Peripartum Data Infant delivery method: Vaginal Laceration description: Periurethral - 1st Degree (not repaired) Episiotomy description: None complications: none [place] Gender: Female Infant Discharge Plan: Home Status at Discharge Functional status at discharge: independent ambulation Overall status at discharge: patient is progressing back to baseline Time Spent with Patient Time attestation: Total time spent providing and/or coordinating discharge services: Time spent: Less than 30 minutes Discharge Plan Discharge Disposition: Home, Self-Care Date of Admission: 12/19/21 09:37 Attending Provider on Discharge: Yvrose Sosa Primary Care Provider: Provider,Not a Local Condition: Stable Anticipated Discharge Date/Time: 12/20/21 14:00 Discharge Medications: New docusate sodium 100 mg Capsule 100 mg PO DAILY Qty: 100 0RF Rx Instructions: Take 1-2 tablets daily as needed for constipation. Continued prenat.vits,dianne,tig-itho-afvaz Tablet 1 tab PO QDAY 0RF Discharge Orders: Discharge Order (Routine); Ordered 12/20/21 Ordered By: Yvrose Sosa Patient Education: OB Vaginal/Bottle Feeding Activity Restrictions/Additional Instructions: Discharge Education? ? Off Work or School for 6 weeks.? ?? Symptoms to report to doctor: ? -Bleeding that saturates more than one pad per hour? -Passing clots larger than the size of a golf ball? -Pain not relieved by prescribed medication? -Fever above 100.4 degrees Fahrenheit? -A foul vaginal odor? -Difficulty in emotions, mood and functions? -Thoughts of hurting yourself and/or ? -Painful, reddened area in your breast? -Any drainage, redness or tenderness in your IV/epidural site? -Severe headache that doesn't improve after taking medications? -Changes in vision, including temporary loss of vision, blurred vision, and/or light sensitivity? -Upper abdominal pain (usually under ribs on the right side)? -Decrease in urination or painful, frequent urinating? -Chest pain? -Shortness of breath? -Tenderness or pain with redness and/swelling in the calf(s) of your leg? ?? Follow Up in clinic in 2 and 6 weeks.? ?? consultation services are available to all mothers and babies for the first year after delivery.? To make an appointment, please call [phone].? Activity Level: No Restrictions and Activity as Tolerated Discharge Diet: Regular Follow Up Appointments: Provider,Not a Local [Primary Care Provider] - Forms: MyHealth Info Instructions Discharge Comment: Follow up at 2 and 6 weeks .
== END 2021-12-20 13:34 | disposition home or self-care (01) | DRG 560 ==
PROVIDERS: Admitting Provider Advanced Practice Midwife; Visit Provider Advanced Practice Midwife
DX: O70.0 First degree perineal laceration during delivery (principal); Z37.0 Single live birth; Z86.16 Personal history of COVID-19; Z3A.39 39 weeks gestation of pregnancy
CPT/HCPCS: 87635; J2590

== ENCOUNTER 2023-04-08 13:43 | Outpatient (CLI) | payer BC, SELFPAY ==
--- NOTE | 2023-04-08 14:00 | CRLHL7_ITS ---
For Patients: As a result of the Cures Act, medical imaging exams and procedure reports are released immediately into your electronic medical record. You may view this report before your referring provider. If you have questions, please contact your health care provider. INDICATION: First trimester scan, establish dates. COMPARISON: None. TECHNIQUE: Real-time parra-scale imaging of the pelvis was performed. FINDINGS: Sonographic imaging demonstrates a single living intrauterine gestation. The embryo demonstrates a regular cardiac rate measuring 150 beats per minute. The embryo`s crown-rump length measurement of 7.5 cm corresponds to a gestational age of 13 weeks 4 days with a sonographic due date of 10/10/2023. The yolk sac is not visualized. There are no gross abnormalities noted within the embryo at this early state of development. The gestational sac has a normal appearance. There is no evidence of a perigestational hemorrhage. The amount of fluid within the sac appears appropriate for gestational age. The cervix is closed. The myometrium appears normal. The ovaries are of normal size. Corpus luteal cyst right ovary. There are no suspicious fluid collections noted in the cul-de-sac. IMPRESSION: Normal first trimester OB ultrasound exam. Gestational age calculated at 13 weeks 4 days with a sonographic due date of 10/09/2024. Dictated by Marino Fitzpatrick MD @ 04/09/2023 8:56:26 AM (Electronically Signed)
== END 2023-04-08 13:44 | disposition home or self-care (01) ==
LOC: US 13:43
PROVIDERS: Visit Provider Advanced Practice Midwife
DX: Z34.91 Encounter for supervision of normal pregnancy, unspecified, first trimester (principal); Z3A.13 13 weeks gestation of pregnancy
CPT/HCPCS: 76801; 86703; 86706; 86803; 86850; 86900; 86901; 87086; 87340

== ENCOUNTER 2023-04-08 15:01 | Outpatient (CLI) | payer BC, SELFPAY | END 2023-04-08 15:02 | disposition home or self-care (01) | PROVIDERS: Visit Provider Advanced Practice Midwife | DX: Z34.91 Encounter for supervision of normal pregnancy, unspecified, first trimester (principal); Z3A.12 12 weeks gestation of pregnancy | CPT/HCPCS: 86592; 86703; 86704; 86706; 86762; 86787; 86803; 86850; 86900; 86901; 87086; 87340 ==

== ENCOUNTER 2023-05-22 08:03 | Outpatient (CLI) | payer BC, SELFPAY ==
--- NOTE | 2023-05-22 08:15 | CRLHL7_ITS ---
For Patients: As a result of the Century Cures Act, medical imaging exams and procedure reports are released immediately into your electronic medical record. You may view this report before your referring provider. If you have questions, please contact your health care provider. INDICATION: Evaluate anatomy. COMPARISON: 04/08/2023 TECHNIQUE: Real time parra scale imaging of the fetus was performed as well as color Doppler analysis of the umbilical vessels. FINDINGS: Sonographic imaging demonstrates a single living intrauterine gestation. Fetus demonstrates a regular cardiac rate of 145 beats per minute. Fetus has a vertex position. The placenta lies anteriorly without evidence of placenta previa. The edge of the placenta is located 7.9 cm from the internal cervical os. Amniotic fluid volume appears normal. Single deepest vertical pocket: 4.3 cm. The cervix is closed and measures 3.5 cm in length. The composite ultrasound gestational age is calculated at 19 weeks 6 days with an estimated sonographic due date of 10/10/2023. The estimated weight is 336 grams which lies at the 64th %. The following biometric measurements were obtained: Biparietal diameter: 4.5 cm/19 weeks 4 days 40th% Head circumference: 16.6 cm/19 weeks 2 days 19th% Abdominal circumference: 15.8 cm/20 weeks 6 days 78th% Femur length: 3.1 cm/19 weeks 4 days 31st% The HC/AC ratio measures: 1.05 range (1.08-1.26) On anatomic survey, there is a normal appearance of the cerebral ventricles, cavum septi pellucidi, cisterna magna and cerebellum. The nose, lips, and facial profile appear normal. The cervical, thoracic and lumbar spine are well visualized and appear normal. There is a normal four-chamber heart view and the left and right ventricular outflow tracts appear normal. The diaphragm and stomach appear normal. The kidneys and bladder also appear normal. There is a normal three-vessel cord and there is a marginal cord insertion site located 1.7 cm from the placental edge. The four extremities appear normal. IMPRESSION: Concordance of clinical and sonographic dating. No intrinsic abnormalities noted on anatomic survey. Marginal cord insertion. Dictated by Marino Fitzpatrick MD @ 05/22/2023 9:26:43 AM (Electronically Signed)
== END 2023-05-22 08:04 | disposition home or self-care (01) ==
LOC: US 08:04
PROVIDERS: Visit Provider Advanced Practice Midwife
DX: Z34.92 Encounter for supervision of normal pregnancy, unspecified, second trimester (principal); Z3A.19 19 weeks gestation of pregnancy
CPT/HCPCS: 76805

== ENCOUNTER 2023-06-24 10:53 | Outpatient (CLI) | payer BC, SELFPAY ==
--- OUTSIDE RECORDS SUMMARY | 2023-06-24 10:56 | XMS_ITS | Clinical Summary ---
Author Name Unknown Organization [facility] Address [address] [place] [address] Care Team Providers Care Transit Operator Name Role Phone [facility], [facility] Primary Care Provide r Allergies No known active allergies Medications Medication Sig Dispensed Refills Start Date End Date Status phentermine (ADIPEX-P) 37.5 MG capsuleIndications:C lass 1 obesity due to excess calories without serious comorbidity with body mass index (BMI) of 34.0 to 34.9 in adult Take 1 capsule (37.5 mg) by mouth every morning 30 capsule 2 12/11/2018 Active Additional Information Patient not taking.Reported on 06/30/2019 levonorgestrel-ethin yl estradiol (SEASONALE) 0.15-0.03 MG tabletIndications:En counter for initial prescription of contraceptive pills Take 1 tablet by mouth daily 91 tablet 0 10/01/2019 Active Active Problems Problem Noted Date Diagnosed Date Class 1 obesity due to exces s calories without serious comorbidity with body mass index (BMI) of 34.0 to 34.9 in adult 09/03/2018 Family History Medical History Relation Comments Diabetes Maternal Grandfather Relation Status Comments Maternal Grandfather Alive Social History Tobacco Use Types Packs/Day Years Used Date Smoking Tobacco: Never Smokeless Tobacco: Never Alcohol Use Standard Drinks/Week Comments No 0 (1 standard drink = 0.6 oz pur e alcohol) PHQ-2 Answer Date Recorded PHQ-2 Score 0 10/01/2019 Adolescent Education Answer Date Record ed Getting School Help Needed Not on file 02/28 Sex and Gender Information Value Date Recorded Sex Assigned at Not on file Gender Identity Not on file Sexual Orientation Not on file Last Filed Vital Signs Vital Sign Reading Time Taken Comments Blood Pressure 98/64 06/30/2019 1:35 PM HOME AND FAMILY LIVING PROFESSOR Pulse 78 06/30/2019 1:35 PM HOME AND FAMILY LIVING PROFESSOR Temperature 36.6 ??C (97.9 ??F) 06/30/2019 1:35 PM CS T Respiratory Rate 16 06/30/2019 1:35 PM HOME AND FAMILY LIVING PROFESSOR Oxygen Saturation 98% 06/30/2019 1:35 PM HOME AND FAMILY LIVING PROFESSOR Inhaled Oxygen Concentration - - Weight 64.4 kg (142 lb) 10/01/2019 3:12 PM CDT p t reporeted Height 165.7 cm (5' 5.25) 10/01/2019 3:12 PM CD T Body Mass Index 23.45 10/01/2019 3:12 PM CDT Plan of Treatment Health Maintenance Due Date Last Done Comments ADVANCE CARE PLANNING 1990 ANNUAL REVIEW OF HM ORDERS 1990 HEPATITIS B IMMUNIZATION (1 of 3 - 3-dose series) 1990 YEARLY PREVENTIVE VISIT 1990 COVID-19 Vaccine (#1) 04/22/1991 HIV SCREENING 2005 HEPATITIS C SCREENING 2008 DTAP/TDAP/TD IMMUNIZATION (1 - Tdap) 10/21/2015 PAP 04/09/2019 04/09/2016 INFLUENZA VACCINE (#1) 2023 PHQ-2 (once per calendar year) 2023 10/01/2019, 06/30/2019, 10/06/2018, Additional history exists HPV IMMUNIZATION Aged Out No longer e ligible based on patient's age to complete this topic IPV IMMUNIZATION Aged Out No longer e ligible based on patient's age to complete this topic MENINGITIS IMMUNIZATION Aged Out No l onger eligible based on patient's age to complete this topic Pneumococcal Vaccine: Pediatrics (0 to 5 Years) and At-Risk Patients (6 to 64 Years) Aged Out No longer eligible based on patient's age to complete this topic RSV MONOCLONAL ANTIBODY Aged Out No l onger eligible based on patient's age to complete this topic Care Teams Transit Operator Relationship Specialty Start Date End Date [facility], [facility] GRAIN ELEVATOR MOTOR STARTER [address] [place], [place] [phone] PCP - General 03/08/19
--- OUTSIDE RECORDS SUMMARY | 2023-06-24 10:56 | XMS_ITS | Referral Summary ---
Author Name Unknown Organization [place] Address [address] [place] [address] Care Team Providers Care Japanese Tutor Name Role Phone [facility], [facility] Primary Care Provide r Allergies No known [...] of 34.0 to 34.9 in adult 09/03/2018 Social History Tobacco Use Types Packs/Day Years [...] Comments Blood Pressure 98/64 06/30/2019 1:35 PM RESIDENT INSPECTOR Pulse 78 06/30/2019 1:35 PM RESIDENT INSPECTOR Temperature 36.6 ??C (97.9 ??F) 06/30/2019 1:35 PM CS T Respiratory Rate 16 06/30/2019 1:35 PM RESIDENT INSPECTOR Oxygen Saturation 98% 06/30/2019 1:35 PM RESIDENT INSPECTOR Inhaled Oxygen Concentration - - Weight 64.4 kg (142 lb) 10/01/2019 3:12 PM CDT p t reporeted Height 165.7 cm (5' 5.25) 10/01/2019 3:12 PM CD T Body Mass Index 23.45 10/01/2019 3:12 PM CDT Plan of Treatment Not on file Care Teams Japanese Tutor Relationship Specialty Start Date End Date [facility], [facility] GUIDE SETTER [address] [place], [place] [phone] PCP - General 03/08/19
--- NOTE | 2023-06-24 11:00 | CRLHL7_ITS ---
For Patients: As a result of the Century Cures Act, medical imaging exams and procedure reports are released immediately into your electronic medical record. You may view this report before your referring provider. If you have questions, please contact your health care provider. INDICATION: Left leg swelling and redness TECHNIQUE: Tafoya-scale two-dimensional ultrasound without and with compression as well as color-flow and spectral Doppler of the left lower extremity veins. COMPARISON: None. FINDINGS: Normal compressibility of and flow within the left common femoral, superficial femoral, popliteal, posterior tibial, profunda, and greater saphenous veins is demonstrated. No thrombus is identified. The right common femoral vein is clear. IMPRESSION: Negative left lower extremity venous Doppler study. Dictated by Robert Ignacio MD @ 06/24/2023 1:47:39 PM (Electronically Signed)
== END 2023-06-24 10:54 | disposition home or self-care (01) ==
PROVIDERS: Visit Provider Advanced Practice Midwife
DX: O12.02 Gestational edema, second trimester (principal)
CPT/HCPCS: 93971

== ENCOUNTER 2023-07-17 08:41 | Outpatient (CLI) | payer BC, SELFPAY ==
--- OUTSIDE RECORDS SUMMARY | 2023-07-17 08:42 | XMS_ITS | Referral Summary ---
Author Name Unknown Organization [place] Address [address] [place] [address] Care Team Providers Care Brusher Name Role Phone [facility], [facility] Primary Care Provide r Allergies [...] Comments Blood Pressure 98/64 06/30/2019 1:35 PM STATE WILDLIFE OFFICER Pulse 78 06/30/2019 1:35 PM STATE WILDLIFE OFFICER Temperature 36.6 ??C (97.9 ??F) 06/30/2019 1:35 PM CS T Respiratory Rate 16 06/30/2019 1:35 PM STATE WILDLIFE OFFICER Oxygen Saturation 98% 06/30/2019 1:35 PM STATE WILDLIFE OFFICER Inhaled Oxygen Concentration - - Weight 64.4 kg (142 lb) 10/01/2019 3:12 PM CDT p t reporeted Height 165.7 cm (5' 5.25) 10/01/2019 3:12 PM CD T Body Mass Index 23.45 10/01/2019 3:12 PM CDT Plan of Treatment Not on file Care Teams Brusher Relationship Specialty Start Date End Date [facility], [facility] FIELD CROP FARMWORKER [address] [place], [place] [phone] PCP - General 03/08/19
--- OUTSIDE RECORDS SUMMARY | 2023-07-17 08:42 | XMS_ITS | Clinical Summary ---
Author Name Unknown Organization [facility] Address [address] [place] [address] Care Team Providers Care Director Equipment Name Role Phone [facility], [facility] Primary Care Provide r Allergies No [...] Comments Blood Pressure 98/64 06/30/2019 1:35 PM BUTTERMAKER CONTINUOUS CHURN Pulse 78 06/30/2019 1:35 PM BUTTERMAKER CONTINUOUS CHURN Temperature 36.6 ??C (97.9 ??F) 06/30/2019 1:35 PM CS T Respiratory Rate 16 06/30/2019 1:35 PM BUTTERMAKER CONTINUOUS CHURN Oxygen Saturation 98% 06/30/2019 1:35 PM BUTTERMAKER CONTINUOUS CHURN Inhaled Oxygen Concentration - - Weight 64.4 [...] age to complete this topic Care Teams Director Equipment Relationship Specialty Start Date End Date [facility], [facility] NETWORK SUPPORT SPECIALIST [address] [place], [place] [phone] PCP - General 03/08/19
--- NOTE | 2023-07-17 08:45 | CRLHL7_ITS ---
For Patients: As a result of the Century Cures Act, medical imaging exams and procedure reports are released immediately into your electronic medical record. You may view this report before your referring provider. If you have questions, please contact your health care provider. INDICATION: Third trimester scan, evaluate growth. COMPARISON: 05/22/2023 TECHNIQUE: Real time parra scale imaging of the fetus was performed as well as color Doppler and spectral Doppler analysis of the umbilical artery. FINDINGS: Sonographic imaging demonstrates a single living intrauterine gestation. Fetus demonstrates a regular cardiac rate of 144 beats per minute. Fetus has a vertex position. The placenta lies anteriorly. Amniotic fluid volume appears normal and there is a single deepest vertical pocket: 3.5 cm. The estimated weight is 1115gm which lies at the 61st %. On the prior OB ultrasound exam dated 05/22/2023 the estimated weight was at the 64th%. BPD 61st percentile. HC 23rd percentile. AC 67th percentile. FL 47th percentile. The HC/AC ratio measures 1.06 range (1.03-1.22). The placental cord insertion is located 2.1 cm from the placental edge. IMPRESSION: Placental cord insertion 2.1 cm from the placental edge. Sonographic gestational age 27 weeks 4 days and sonographic due date of 10/12/2023. Good correlation with dates. Normal interval growth. Estimated weight 61st percentile. Abdominal circumference 67th percentile. Dictated by Marino Fitzpatrick MD @ 07/17/2023 10:35:09 AM (Electronically Signed)
== END 2023-07-17 08:42 | disposition home or self-care (01) ==
LOC: US 08:41
PROVIDERS: Visit Provider Advanced Practice Midwife
DX: Z34.82 Encounter for supervision of other normal pregnancy, second trimester (principal); Z3A.27 27 weeks gestation of pregnancy
CPT/HCPCS: 76816; 86850

== ENCOUNTER 2023-07-17 09:42 | Outpatient (CLI) | payer BC, SELFPAY ==
--- OUTSIDE RECORDS SUMMARY | 2023-07-17 09:43 | XMS_ITS | Referral Summary ---
Author Name Unknown Organization [facility] Address [address] [place] [address] Care Team Providers Care Assistant Manager Bilingual Name Role Phone [facility], [facility] Primary Care Provide r Allergies No [...] Comments Blood Pressure 98/64 06/30/2019 1:35 PM BRASS SORTER Pulse 78 06/30/2019 1:35 PM BRASS SORTER Temperature 36.6 ??C (97.9 ??F) 06/30/2019 1:35 PM CS T Respiratory Rate 16 06/30/2019 1:35 PM BRASS SORTER Oxygen Saturation 98% 06/30/2019 1:35 PM BRASS SORTER Inhaled Oxygen Concentration - - Weight 64.4 kg (142 lb) 10/01/2019 3:12 PM CDT p t reporeted Height 165.7 cm (5' 5.25) 10/01/2019 3:12 PM CD T Body Mass Index 23.45 10/01/2019 3:12 PM CDT Plan of Treatment Not on file Care Teams Assistant Manager Bilingual Relationship Specialty Start Date End Date [facility], [facility] MEDICAL RECORDS RECEPTIONIST [address] [place], [place] [phone] PCP - General 03/08/19
--- OUTSIDE RECORDS SUMMARY | 2023-07-17 09:43 | XMS_ITS | Clinical Summary ---
Author Name Unknown Organization [place] Address [address] [place] [address] Care Team Providers Care Maple Products Maker Name Role Phone [facility], [facility] Primary Care Provide r Allergies No [...] Comments Blood Pressure 98/64 06/30/2019 1:35 PM PHARMACY TECHNICIAN PROGRAM DIRECTOR Pulse 78 06/30/2019 1:35 PM PHARMACY TECHNICIAN PROGRAM DIRECTOR Temperature 36.6 ??C (97.9 ??F) 06/30/2019 1:35 PM CS T Respiratory Rate 16 06/30/2019 1:35 PM PHARMACY TECHNICIAN PROGRAM DIRECTOR Oxygen Saturation 98% 06/30/2019 1:35 PM PHARMACY TECHNICIAN PROGRAM DIRECTOR Inhaled Oxygen Concentration - - Weight 64.4 [...] age to complete this topic Care Teams Maple Products Maker Relationship Specialty Start Date End Date [facility], [facility] ORACLE TECHNICAL ARCHITECT [address] [place], [place] [phone] PCP - General 03/08/19
== END 2023-07-17 09:43 | disposition home or self-care (01) ==
PROVIDERS: Visit Provider Advanced Practice Midwife
DX: Z34.92 Encounter for supervision of normal pregnancy, unspecified, second trimester (principal); Z3A.27 27 weeks gestation of pregnancy
CPT/HCPCS: 86592; 86850

== ENCOUNTER 2023-08-18 13:54 | Outpatient (CLI) | payer BC, SELFPAY ==
--- NOTE | 2023-08-18 14:00 | US_ITS ---
Patient: FIDEL SEXTON Facility:?[facility] RIS Patient ID:?[id number] Site Patient ID:?[id number]. Site :?1990 Study:?US-OB Pelvis OB f/u-08/18/2023 3:45:32 PM Ordering Physician:HUMBERTO Final Report: INDICATION: Third trimester scan, evaluate growth. COMPARISON: 07.17.23 TECHNIQUE: Real time parra scale imaging of the fetus was performed. FINDINGS: Sonographic imaging demonstrates a single living intrauterine gestation. Fetus demonstrates a regular cardiac rate of 131 beats per minute. Fetus has a vertex position. The placenta lies anteriorly. Amniotic fluid volume appears normal and there is a single deepest vertical pocket: 3.9 cm. The estimated weight is 2040gm which lies at the 50th %. On the prior OB ultrasound exam dated 07/17/2023 the estimated weight was at the 61st%. BPD 65th percentile. HC 37th percentile. AC is 76th percentile. FL 12th percentile. The HC/AC ratio measures 1.02 range (0.96-1.11). IMPRESSION: Sonographic gestational age 32 weeks 6 days and sonographic due date of 10/07/2023. Good correlation with dates. Normal interval growth. Estimated weight 50th percentile. Abdominal circumference 76th percentile. Dictated by Marino Fitzpatrick MD @ 08/19/2023 8:37:53 AM Signed by:?Marino Fitzpatrick MD @08/19/2023 8:37:53 AM (Electronic Signature)
== END 2023-08-18 13:55 | disposition home or self-care (01) ==
LOC: US 13:54
PROVIDERS: Visit Provider Advanced Practice Midwife
DX: O43.193 Other malformation of placenta, third trimester (principal); Z3A.32 32 weeks gestation of pregnancy
CPT/HCPCS: 76816; 76817

== ENCOUNTER 2023-09-15 13:33 | Outpatient (CLI) | payer BC, SELFPAY ==
--- OUTSIDE RECORDS SUMMARY | 2023-09-15 13:35 | XMS_ITS | Referral Summary ---
Author Name Unknown Organization [facility] Address [address] [place] [address] Care Team Providers Care Receiving Dock Checker Name Role Phone [facility], [facility] Primary Care Provide r Allergies No [...] Comments Blood Pressure 98/64 06/30/2019 1:35 PM ORE STORAGE DRIER Pulse 78 06/30/2019 1:35 PM ORE STORAGE DRIER Temperature 36.6 ??C (97.9 ??F) 06/30/2019 1:35 PM CS T Respiratory Rate 16 06/30/2019 1:35 PM ORE STORAGE DRIER Oxygen Saturation 98% 06/30/2019 1:35 PM ORE STORAGE DRIER Inhaled Oxygen Concentration - - Weight 64.4 kg (142 lb) 10/01/2019 3:12 PM CDT p t reporeted Height 165.7 cm (5' 5.25) 10/01/2019 3:12 PM CD T Body Mass Index 23.45 10/01/2019 3:12 PM CDT Plan of Treatment Not on file Care Teams Receiving Dock Checker Relationship Specialty Start Date End Date [facility], [facility] [address] SUPERINTEND[address] [place], [place] [phone] PCP - General 03/08/19
--- OUTSIDE RECORDS SUMMARY | 2023-09-15 13:35 | XMS_ITS | Clinical Summary ---
Author Name Unknown Organization [facility] Address [address] [place] [address] Care Team Providers Care Twisting Frame Fixer Name Role Phone [facility], [facility] Primary Care Provide r Allergies No [...] Comments Blood Pressure 98/64 06/30/2019 1:35 PM HAND ENGRAVER Pulse 78 06/30/2019 1:35 PM HAND ENGRAVER Temperature 36.6 ??C (97.9 ??F) 06/30/2019 1:35 PM CS T Respiratory Rate 16 06/30/2019 1:35 PM HAND ENGRAVER Oxygen Saturation 98% 06/30/2019 1:35 PM HAND ENGRAVER Inhaled Oxygen Concentration - - Weight 64.4 kg (142 lb) 10/01/2019 3:12 PM CDT p t reporeted Height 165.7 cm (5' 5.25) 10/01/2019 3:12 PM CD T Body Mass Index 23.45 10/01/2019 3:12 PM CDT Plan of Treatment Not on file Care Teams Twisting Frame Fixer Relationship Specialty Start Date End Date [facility], [facility] PHYSICIAN AIDE [address] [place], [place] [phone] PCP - General 03/08/19
[2023-09-16 14:49] LABS: Strep B DNA Probe Negative (Negative)
[2023-09-16 16:39] LABS: Strep B Susceptibility Needed? No
== END 2023-09-15 13:34 | disposition home or self-care (01) ==
LOC: NFLDREF 13:33
PROVIDERS: Visit Provider Advanced Practice Midwife
DX: Z34.83 Encounter for supervision of other normal pregnancy, third trimester (principal); Z86.2 Personal history of diseases of the blood and blood-forming organs and certain disorders involving the immune mechanism
CPT/HCPCS: 82728; 87081; 87653

== ENCOUNTER 2023-09-18 16:36 | Outpatient (CLI) | payer BC, SELFPAY ==
--- OUTSIDE RECORDS SUMMARY | 2023-09-18 16:39 | XMS_ITS | Referral Summary ---
Author Name Unknown Organization [facility] Address [address] [place] [address] Care Team Providers Care Apartment Maintenance Manager Name Role Phone [facility], [facility] Primary Care Provide r Allergies No [...] 1 tablet by mouth daily 91 tablet 10/01/2019 Active Active Problems Problem Noted Date [...] Comments Blood Pressure 98/64 06/30/2019 1:35 PM DIE BARBER Pulse 78 06/30/2019 1:35 PM DIE BARBER Temperature 36.6 ??C (97.9 ??F) 06/30/2019 1:35 PM CS T Respiratory Rate 16 06/30/2019 1:35 PM DIE BARBER Oxygen Saturation 98% 06/30/2019 1:35 PM DIE BARBER Inhaled Oxygen Concentration - - Weight 64.4 kg (142 lb) 10/01/2019 3:12 PM CDT p t reporeted Height 165.7 cm (5' 5.25) 10/01/2019 3:12 PM CD T Body Mass Index 23.45 10/01/2019 3:12 PM CDT Plan of Treatment Not on file Procedures Procedure Name Priority Date/Time Associated Diagnosis Comments PAP SMEAR - HIM PATIENT REPORTED Routine 04/09/2016 from Last 3 Months or Most Recently Relevant to Health Maintenance Results * PAP Smear - HIM Patient Reported (04/09/2016) PAP Smear - HIM Patient Reported Negative EXTERNAL LAB 04/09/2016 Narrative EXTERNAL LAB - 04/09/2016 Please abstract the following data from this visit with this patient into the appropriate field in [employer]: ?? Pap smear done on this date: Apr 2016 (approximately), by this group: [employer], results were normal. ?? Patient Reported LABORATORY EXTERNAL LAB External Lab from Last 3 Months or Most Recently Relevant to Health Maintenance Care Teams Apartment Maintenance Manager Relationship Specialty Start Date End Date [facility], [facility] RECEPTION SPECIALIST [address] [place], [place] [id number] PCP - General 03/08/19
--- OUTSIDE RECORDS SUMMARY | 2023-09-18 16:39 | XMS_ITS | Clinical Summary ---
Author Name Unknown Organization [facility] Address [address] [place] [address] Care Team Providers Care Crayon Sorting Machine Feeder Name Role Phone [facility], [facility] Primary Care Provide r Allergies [...] Comments Blood Pressure 98/64 06/30/2019 1:35 PM PLANOGRAPH OPERATOR Pulse 78 06/30/2019 1:35 PM PLANOGRAPH OPERATOR Temperature 36.6 ??C (97.9 ??F) 06/30/2019 1:35 PM CS T Respiratory Rate 16 06/30/2019 1:35 PM PLANOGRAPH OPERATOR Oxygen Saturation 98% 06/30/2019 1:35 PM PLANOGRAPH OPERATOR Inhaled Oxygen Concentration - - Weight 64.4 [...] this patient into the appropriate field in [employer]: ?? Pap smear done on this date: Apr 2016 (approximately), by this group: [employer], results were normal. ?? Patient Reported LABORATORY EXTERNAL LAB External Lab from Last 3 Months or Most Recently Relevant to Health Maintenance Care Teams Crayon Sorting Machine Feeder Relationship Specialty Start Date End Date [facility], [facility] [place] [address] [place] [address] PCP - General 03/08/19
--- NOTE | 2023-09-18 17:00 | US_ITS ---
Patient: FIDEL SEXTON Facility:?[facility] Patient ID:?[id number] Site Patient ID:?[id number]. Site :?1990 Study:?US-OB Pelvis OB F/U with BPP-09/18/2023 6:07:57 PM Ordering Physician:Nickolas Thompson Final Report: INDICATION: marginal Cord insert TECHNIQUE: Real time parra scale imaging of the fetus was performed. COMPARISON: 08/18/2019 FINDINGS: Sonographic imaging demonstrates a single living intrauterine gestation. Fetus demonstrates a regular cardiac rate of 130 beats per minute. Fetus has a vertex position. The placenta lies anteriorly. Amniotic fluid volume appears normal and there is a single deepest pocket of 3.5 cm. The estimated weight is 2873gm which lies at the 37th %. On the prior OB ultrasound dated 08/18/2023 the estimated weight was at the 50th percentile. BPD 35th percentile. HC 43rd percentile. AC is 26th percentile. FL 53rd percentile. The fetus was active and demonstrated normal breathing movements. There was normal flexion and extension of the trunk and extremities. IMPRESSION: Normal biophysical profile score 8/8. Sonographic gestational age 36 weeks 4 days and a sonographic due date of 10/12/2023. Good correlation with dates. Normal interval growth. Estimated weight 37th percentile. Abdominal circumference 26th percentile. Dictated by Marino Fitzpatrick MD @ 09/19/2023 9:41:56 AM Signed by:?Marino Fitzpatrick MD @09/19/2023 9:41:56 AM (Electronic Signature)
== END 2023-09-18 16:37 | disposition home or self-care (01) ==
PROVIDERS: Visit Provider Advanced Practice Midwife
DX: O43.193 Other malformation of placenta, third trimester (principal); Z3A.36 36 weeks gestation of pregnancy
CPT/HCPCS: 76816; 76819

== ENCOUNTER 2023-09-29 12:45 | Outpatient (CLI) | payer BC, SELFPAY ==
--- OUTSIDE RECORDS SUMMARY | 2023-10-01 11:30 | XMS_ITS | Clinical Summary ---
Author Name Unknown Organization [facility] Address [address] [place] [address] Care Team Providers Care Allergy And Immunology Chief Name Role Phone [facility], [facility] Primary Care Provide r Allergies No known [...] Comments Blood Pressure 98/64 06/30/2019 1:35 PM INTERNAL CARVER Pulse 78 06/30/2019 1:35 PM INTERNAL CARVER Temperature 36.6 ??C (97.9 ??F) 06/30/2019 1:35 PM CS T Respiratory Rate 16 06/30/2019 1:35 PM INTERNAL CARVER Oxygen Saturation 98% 06/30/2019 1:35 PM INTERNAL CARVER Inhaled Oxygen Concentration - - Weight 64.4 [...] this patient into the appropriate field in Nidmi: ?? Pap smear done on this date: Apr 2016 (approximately), by this group: [employer] results were normal. ?? Patient Reported LABORATORY EXTERNAL LAB External Lab from Last 3 Months or Most Recently Relevant to Health Maintenance Care Teams Allergy And Immunology Chief Relationship Specialty Start Date End Date [facility], [facility] [place] [place] [place] [address] PCP - General 03/08/19
--- OUTSIDE RECORDS SUMMARY | 2023-10-01 11:30 | XMS_ITS | Referral Summary ---
Author Name Unknown Organization [facility] Address [address] [place] [address] Care Team Providers Care Electrical Solderer Name Role Phone [facility], [facility] Primary Care Provide r Allergies No [...] Comments Blood Pressure 98/64 06/30/2019 1:35 PM NEUROLOGY HOSPITALIST Pulse 78 06/30/2019 1:35 PM NEUROLOGY HOSPITALIST Temperature 36.6 ??C (97.9 ??F) 06/30/2019 1:35 PM CS T Respiratory Rate 16 06/30/2019 1:35 PM NEUROLOGY HOSPITALIST Oxygen Saturation 98% 06/30/2019 1:35 PM NEUROLOGY HOSPITALIST Inhaled Oxygen Concentration - - Weight 64.4 [...] this patient into the appropriate field in [employer]: ?? Pap smear done on this date: Apr 2016 (approximately), by this group: [employer], results were normal. ?? Patient Reported LABORATORY EXTERNAL LAB External Lab from Last 3 Months or Most Recently Relevant to Health Maintenance Care Teams Electrical Solderer Relationship Specialty Start Date End Date [facility], [facility] BUILDING CLEANING SUPERVISOR [address] [place], [place] [phone] PCP - General 03/08/19
== END 2023-09-29 12:46 | disposition home or self-care (01) ==
LOC: NFLDREF 10-01 11:25
PROVIDERS: Visit Provider Advanced Practice Midwife
DX: O99.019 Anemia complicating pregnancy, unspecified trimester (principal)
CPT/HCPCS: 82728; 87086

== ENCOUNTER 2023-10-05 16:14 | Inpatient (IN) | payer BC, SELFPAY ==
[2023-10-05] VITALS (15 sets, daily range): BP systolic 115–124; BP diastolic 72–88; PULSE 68–112; RESP 16–20; TEMP 36.8–37.3; O2SAT 100; BMI 31.1
--- OUTSIDE RECORDS SUMMARY | 2023-10-05 15:59 | XMS_ITS | Referral Summary ---
Author Name Unknown Organization [facility] Address [address] [place] [address] Care Team Providers Care Naval Police Coxswain Name Role Phone [facility], [facility] Primary Care Provide r Allergies No known [...] Comments Blood Pressure 98/64 06/30/2019 1:35 PM PHOTORESIST CONTACT PRINTER Pulse 78 06/30/2019 1:35 PM PHOTORESIST CONTACT PRINTER Temperature 36.6 ??C (97.9 ??F) 06/30/2019 1:35 PM CS T Respiratory Rate 16 06/30/2019 1:35 PM PHOTORESIST CONTACT PRINTER Oxygen Saturation 98% 06/30/2019 1:35 PM PHOTORESIST CONTACT PRINTER Inhaled Oxygen Concentration - - Weight 64.4 [...] this patient into the appropriate field in [employer]: ?? Pap smear done on this date: Apr 2016 (approximately), by this group: [employer], results were normal. ?? Patient Reported LABORATORY EXTERNAL LAB External Lab from Last 3 Months or Most Recently Relevant to Health Maintenance Care Teams Naval Police Coxswain Relationship Specialty Start Date End Date [facility], [facility] HEEL WASHER STRINGING MACHINE OPERATOR [address] [place], [place] [phone] PCP - General 03/08/19
--- OUTSIDE RECORDS SUMMARY | 2023-10-05 15:59 | XMS_ITS | Clinical Summary ---
Author Name Unknown Organization [place] Address [address] [place] [address] Care Team Providers Care Veterinary Surgeon Name Role Phone [facility], [facility] Primary Care Provide r Allergies No known [...] Comments Blood Pressure 98/64 06/30/2019 1:35 PM NAVAL INSPECTOR Pulse 78 06/30/2019 1:35 PM NAVAL INSPECTOR Temperature 36.6 ??C (97.9 ??F) 06/30/2019 1:35 PM CS T Respiratory Rate 16 06/30/2019 1:35 PM NAVAL INSPECTOR Oxygen Saturation 98% 06/30/2019 1:35 PM NAVAL INSPECTOR Inhaled Oxygen Concentration - - Weight [...] this patient into the appropriate field in [employer]: ?? Pap smear done on this date: Apr 2016 (approximately), by this group: [employer], results were normal. ?? Patient Reported LABORATORY EXTERNAL LAB External Lab from Last 3 Months or Most Recently Relevant to Health Maintenance Care Teams Veterinary Surgeon Relationship Specialty Start Date End Date [facility], [facility] PACKER [place] [address] [place] [address] PCP - General 03/08/19
--- NOTE | 2023-10-05 16:14 | P.LDBA_ITS ---
Subjective History of Present Illness Date Seen: 10/05/23 Narrative: Aleyda is a 32 yo at 39.2 weeks gestation being admitted to Labor and Delivery for spontaneous onset of labor. Her full history and physical was dictated by MELISSA Colon on 09/22/2023. She presents today with contractions that started last evening and have become more regular in the last hour. She denies any leaking of fluid but has had some spotting throughout the weekend. Please see this for details. Specific Issues/Plans : Brad H&P done by MELISSA Colon on 09/22/2023 1. A-. Declined Rhogam with last . Last baby A+ and did not get Rhogam. Antibody screen negative at NOB. Review at next visit. Rhogam at 28 weeks: declines; declination signed Rhogam PP: declines 2. Hep B antibody negative. Offer Hep B only with risk factors: none present 3. Hx severe N/V with other pregnancies but none so far. 4. Short interpregnancy interval of 12 months. 5. Marginal cord insertion growth US q4 weeks starting 28-32 weeks 28 wk growth 61% 32 wk growth 50% consider weekly BPP or NST at 36 weeks- pt plans to decline; 36 week growth 37%, BPP 8/8 6. Possible superficial blood clots in left lower extremity. Doppler done, n egative for blood clots 7. Anemia at 36 wks Hx anemia. Hgb 12.1 at NOB. 9.4 at 36 weeks, drop from 11.1 IV iron ordered COVID: Flu: TDAP: declines 08/04/23 32wk Mental Health: 34wk Hgb: OB - Problem Based A/P Additional Plan (1) Pain during labor: Status: Acute (2) 39 weeks gestation of : Status: Acute (3) Anemia in : Status: Acute (4) Rh negative status during : Status: Acute Plan ASSESSMENT:? 32 at 39.2 weeks gestation? complicated by:?Rh negative, marginal cord, anemia (hgb 9.7 1 week ago) Labor type: Spontaneous, Active labor? Category 1 FHR pattern.?? Labor complicated by: none? GBS negative? ? PLAN:? 1. Routine intrapartum cares as ordered. Continue with expectant management? 2. Monitoring per policy, intermittent? 3. Planning unmedicated . Desires water . Consent signed. Hep C negative. Candidate for analgesia of choice if desired. 4. Patient encouraged to reposition and ambulate to promote physiologic labor and .? 5. Anemia, hgb was 9.7 a week ago and had planned iron transfusion. She declines labs on admission and desires expectant management. She understands that she is at higher risk for PPH. Because she has been working to improve her hemoglobin, she is a candidate for waterbirth. 6. Anticipate ? Delivery/Labor/Induction Plan Plan: expectant management OB Exam Physical Exam Narrative: Vitals Reviewed Constitutional:? Alert and oriented x3 HEENT:? Normocephalic, atraumatic Neck:? Supple Lungs:? Clear to auscultation bilaterally Heart:? Regular rate and rhythm, no murmur, rub or gallop Abdomen:? Soft, nontender, and gravid. Vertex by Stephen's, confirmed with cervical exam. Extremities:? No edema or erythema Cervix: 5.5 cm/60%/-2 station/vertex per RN exam NST: 135 bpm/moderate variability/15x15 accelerations/no decelerations/contractions every 2-4 minutes lasting about 60 seconds
--- NOTE | 2023-10-05 21:38 | W.PM.OBVAGDE ---
OB Procedure Vag Delivery Mother Details Mother Details: The patient is a 32 year-old, 6, now Para 4024, admitted on 10/05/23 at 39.2 gestation. : 6 Para: 4 Weeks Gestation: 39.2 Admission Date: 10/05/23 Additional Details Amniotic Membrane Status: SROM Amniotic Membrane Rupture Date: 10/05/23 Amniotic Membrane Rupture Time: 20:00 Amniotic Membrane Fluid Description: Clear Analgesia/Anesthesia Type: None Waterbirth: Yes Pitcoin: No (Declined AMTSL) Intrapartal Events: None Labor Onset: 16:00 Complete: 20:52 Pushin:52 Heart: heart tones during second stage were intermittently auscultated with reassuring heart tones. Delivery Details Delivery Date: 10/05/23 Delivery Time: 21:01 Route of delivery: Infant Gender: Female Infant Viability: Alive; Heart Rate Present Position at Delivery: OA Delivery Details: Patient was admitted for spontaneous onset of labor and progressed normally. SROM noted at 1999 with clear fluid. Patient was assumed complete with pushing at 2051. of a viable female at 2100, semi-reclined in the tub. Vertex delivered OA. No nuchal cord or shoulder. Body delivered easily and without incident. Infant passed to mothers abdomen with a vigorous cry. Cord was clamped and cut at > 5 minutes. APGARS were 8 at one minute and 8 at five minutes respectively. Mouth was bulb suctioned. Patient was assisted from the tub to the bed while baby was taken to warmer to be dried. Intact placenta with a 3 vessel cord delivered spontaneously at 2120. Marginal cord insertion noted, not sent to pathology. Fundus firm. Patient declined IM pitocin. Intact perineum identified. QBL 300 cc all with placenta, EBL of tub was 0. Mother and baby stable; mother plans to breastfeed. Infant weight 7 lb 8 oz. 1 Minute Interval Total Score: 8 5 Minute Interval Total Score: 8 Additional Details Shoulder Dystocia: No Placenta Delivery Time: 21:21 Placental Delivery Description: Spontaneous Procedure Done: Global Blood Loss: 300 Laceration: None Blood Loss Measurement Type: QBL Bakri Used: No Sponge/Need Count Correct: Yes Cord Vessel Description: 3 Vessels Event Summary Status: Mother and infant were stable after delivery. Disposition: floor
[2023-10-06 04:09] VITALS: BP 116/79; PULSE 68; RESP 18; TEMP 36.7; O2SAT 97
[2023-10-06 06:01] LABS: Hemoglobin* 8.4 gm/dL (12.0-16.0)
[2023-10-06 07:40] VITALS: BP 120/83; PULSE 67; RESP 16; TEMP 36.6; O2SAT 97
--- NOTE | 2023-10-06 07:43 | PM.OBDSVD1 ---
DS: Providers Provider Date Seen: 10/06/23 Date of admission: 10/05/23 16:14 Primary care physician: Not a Local Provider Admitting Clinician: Heidi Chowdary CNM Attending Physician on discharge: Heidi Chowdary CNM Date of Discharge: 10/06/23 DS: Diagnosis Discharge Diagnosis (1) care following vaginal delivery: Status: Acute (2) Rh negative status during : Status: Acute (3) Anemia, : Status: Acute Exam Narrative: Exam Narrative: GENERAL APPEARANCE:? normal affect, alert, no distress? MOOD:? appropriate? CHEST:? clear to auscultation and percussion? HEART:? regular rate and rhythm? ABDOMEN:? soft, non-tender the uterine fundus is U/2 and is appropriate for the stage of recovery.? PERINEUM:? mild edema of the perineum, there is a intact perineum that is healing well.? EXTREMITIES:? normal and no edema? Const: Vital Signs, click to edit/add: Vital Signs - 24 hr 10/05/23 16:33 10/05/23 16:35 10/05/23 17:49 Temperature 98.7 F 98.6 F Pulse Rate 110 H Pulse Rate [Pulse Oximeter] Respiratory Rate 16 Blood Pressure 123/88 Blood Pressure [Le ft Arm] Pulse Oximetry [facility] 18:48 10/05/23 19:23 10/05/23 19:23 Temperature 98.5 F 98.2 F Pulse Rate 112 H Pulse Rate [Pulse Oximeter] Respiratory Rate 20 Blood Pressure 120/82 Blood Pressure [Le ft Arm] Pulse Oximetry [facility] 10/05/23 20:03 10/05/23 21:21 10/05/23 21:21 Temperature 98.9 F 99.1 F Pulse Rate 84 Pulse Rate [Pulse Oximeter] Respiratory Rate 18 Blood Pressure 122/74 Blood Pressure [Le ft Arm] Pulse Oximetry Oxygen Delivery [facility] 10/05/23 21:36 10/05/23 21:36 10/05/23 21:51 Temperature Pulse Rate 90 68 Pulse Rate [Pulse Oximeter] Respiratory Rate 18 Blood Pressure 124/74 121/74 Blood Pressure [Le ft Arm] Pulse Oximetry [facility] 10/05/23 21:51 10/05/23 22:06 10/05/23 22:06 Temperature 99.1 F 98.7 F Pulse Rate 84 Pulse Rate [Pulse Oximeter] Respiratory Rate 18 16 Blood Pressure 115/74 Blood Pressure [Le ft Arm] Pulse Oximetry Oxygen Delivery Me thod 10/05/23 22:21 10/05/23 22:21 10/05/23 22:36 Temperature 98.6 F Pulse Rate 85 86 Pulse Rate [Pulse Oximeter] Respiratory Rate 18 Blood Pressure 120/72 119/73 Blood Pressure [Le ft Arm] Pulse Oximetry [facility] 10/05/23 22:36 10/05/23 22:51 10/05/23 22:51 Temperature 98.6 F 98.8 F Pulse Rate 83 Pulse Rate [Pulse Oximeter] Respiratory Rate 18 18 Blood Pressure 117/74 Blood Pressure [Le ft Arm] Pulse Oximetry [facility] 10/05/23 23:06 10/05/23 23:07 10/06/23 04:09 Temperature 98.8 F 98.0 F Pulse Rate 100 Pulse Rate [Pulse Oximeter] 68 Respiratory Rate 18 18 Blood Pressure 122/76 Blood Pressure [Le ft Arm] 116/79 Pulse Oximetry 100 97 Oxygen Delivery Me thod Room Air 10/06/23 07:40 Temperature 98 F Pulse Rate Pulse Rate [Pulse Oximeter] 67 Respiratory Rate 16 Blood Pressure Blood Pressure [Le ft Arm] 120/83 Pulse Oximetry 97 Oxygen Delivery Me thod Room Air OB - DS: Summary Hospital Course Hospital Course: The patient is a 32 year old G 6 P 4 at 39.2 weeks gestation that was admitted to the Center on 10/05/23 for active labor. She had an uncomplicated vaginal delivery. She delivered a viable female . She is bottle feeding. the patient has done well. Her pain is well controlled with current medications.? She has no new complaints.? Urinary output is adequate and she is voiding without difficulty.? Has a good appetite, is tolerating a general diet, is passing flatus, and has not had a bowel movement.? Has scant amount of rubra lochia.? She is ambulating well. She denies feeling lightheaded, dizzy or fatigued. Declines IV iron infusion and will plan to continue taking oral iron supplement every other day. Discussed signs/symptoms of low hemoglobin and low tolerance of increased bleeding to be evaluated. Discussed considering rechecking Hgb at 2 week visit. She is planning oral contraceptive pill for contraception and would like an extended use packaging for better insurance coverage. She is aware that the collar trimmer may request a longer hospitalization for baby due to Rh status and plans to stay if baby stays. Peripartum Data delivery method: Vaginal Laceration description: None Episiotomy description: None complications: none Infant Gender: Female Infant Discharge Plan: Home Status at Discharge Functional status at discharge: independent ambulation Overall status at discharge: patient is progressing back to baseline Time Spent with Patient Time attestation: Total time spent providing and/or coordinating discharge services: Discharge Plan Discharge Disposition: Home, Self-Care Date of Admission: 10/05/23 16:14 Attending Provider on Discharge: Yvrose Sosa Primary Care Provider: Provider,Not a Local Condition: Stable Anticipated Discharge Date/Time: 10/06/23 23:00 Discharge Medications: New docusate sodium 100 mg Capsule 100 mg PO DAILY Qty: 60 0RF Rx Instructions: Take 1-2 tablets daily as needed for constipation. ferrous sulfate 325 mg (65 mg iron) tablet 325 mg PO Q OTHER DAY Qty: 60 2RF Continued DHA 200 mg capsule 200 mg PO DAILY Discharge Orders: Discharge Order (Routine); Ordered 10/06/23 Ordered By: Yvrose Sosa Patient Education: OB Vaginal/Bottle Feeding Additional Instructions: Discharge instructions were reviewed with the patient including signs and symptoms of infection and home going medications.? Lifting Restrictions: 20 pounds for 6? weeks? ?? Do not drive while taking narcotic pain meds.? Off Work or School for 6 weeks.? ?? Symptoms to report to doctor:? -Bleeding that saturates more than one pad per hour? -Passing clots larger than the size of a golf ball? -Pain not relieved by prescribed medication? -Fever above 100.4 degrees Fahrenheit? -A foul vaginal odor? -Difficulty in emotions, mood and functions? -Thoughts of hurting yourself and/or ? -Painful, reddened area in your breast? -Any drainage, redness or tenderness in your IV/epidural site? -Severe headache that doesn't improve after taking medications? -Changes in vision, including temporary loss of vision, blurred vision, and/or light sensitivity? -Upper abdominal pain (usually under ribs on the right side)? -Decrease in urination or painful, frequent urinating? -Chest pain? -Shortness of breath? -Tenderness or pain with redness and/swelling in the calf(s) of your leg? ?? Follow Up in clinic in 2 and 6 weeks.? ?? consultation services are available to all mothers and babies for the first year after delivery.? To make an appointment, please call [phone].? Activity Level: Activity as Tolerated Discharge Diet: Regular Follow Up Appointments: Provider,Not a Local [Primary Care Provider] - Melania Lima CNM [Certified Nurse Acupressure Therapist] - Heidi Chowdary CNM [Certified Nurse Acupressure Therapist] - Yvrose Sosa CNM [Certified Nurse Acupressure Therapist] - Nickolas Georges CNM [Certified Nurse Acupressure Therapist] - Forms: MyHealth Info Instructions
[2023-10-06 12:20] VITALS: BP 124/88; PULSE 78; RESP 18; TEMP 36.4; O2SAT 97
[2023-10-06 15:50] VITALS: BP 131/79; PULSE 71; RESP 18; TEMP 36.6; O2SAT 98
[2023-10-06 20:40] VITALS: BP 129/83; PULSE 81; RESP 18; TEMP 37
[2023-10-08 02:19] LABS: Rapid Plasma Reagin (RPR) Non Reactive (Non Reactive)
== END 2023-10-06 21:22 | disposition home or self-care (01) | DRG 560 ==
LOC: OB OUT 16:14 → OB 16:14
PROVIDERS: Admitting Provider Advanced Practice Midwife; Visit Provider Advanced Practice Midwife
DX: O26.893 Other specified pregnancy related conditions, third trimester (principal); Z67.11 Type A blood, Rh negative; O99.02 Anemia complicating childbirth; D64.9 Anemia, unspecified; Z3A.39 39 weeks gestation of pregnancy; Z37.0 Single live birth
CPT/HCPCS: 36415; 85018; 85461; 86592

== ENCOUNTER 2024-09-23 15:03 | Outpatient (CLI) | payer BC, SELFPAY | END 2024-09-23 15:04 | disposition home or self-care (01) | PROVIDERS: PCP Physician Assistant Medical; Visit Provider Physician Assistant Medical | DX: Z13.228 Encounter for screening for other metabolic disorders (principal); Z13.6 Encounter for screening for cardiovascular disorders; Z13.29 Encounter for screening for other suspected endocrine disorder | CPT/HCPCS: 80053; 80061; 84443 ==